=== PATIENT | male | born 1945 | race Caucasian/White ===

== ENCOUNTER 2024-01-25 07:43 | Outpatient (RCR) | payer OTHER, SELFPAY | END 2024-01-25 23:59 | disposition home or self-care (01) | LOC: RPT 07:43 | PROVIDERS: ATTENDING PHYSICIAN Nurse Practitioner Adult Health | DX: R26.81 Unsteadiness on feet (principal); Z73.6 Limitation of activities due to disability; R26.2 Difficulty in walking, not elsewhere classified; R29.6 Repeated falls | CPT/HCPCS: 97162 ==

== ENCOUNTER 2024-02-22 07:52 | Outpatient (RCR) | payer OTHER, SELFPAY | END 2024-02-22 23:59 | disposition home or self-care (01) | LOC: RPT 07:52 | PROVIDERS: ATTENDING PHYSICIAN Nurse Practitioner Adult Health | DX: R26.81 Unsteadiness on feet (principal); Z73.6 Limitation of activities due to disability; R26.2 Difficulty in walking, not elsewhere classified | CPT/HCPCS: 97110; 97112; 97116; 97530 ==

== ENCOUNTER 2024-03-11 09:34 | Day surgery (SDC) | payer OTHER, SELFPAY ==
--- NOTE | 2024-03-11 11:25 | ITS.CL.CARDI ---
Research Lab Assistant - Cardioversion
Cardioversion
Procedure Report:
Date of Procedure:
Procedure: Cardioversion
Indication: Symptomatic atrial fibrillation
Performing Physician: Ford Scott MD
Technique: The patient was brought to the holding area. Signed informed consent was obtained. A time out was called and performed. The patient was anesthetized by the anesthesia service. Anticoagulation status was reviewed and appropriate. R2 pads
were placed anteriorly and posteriorly. A 200 J synchronized biphasic shock restored atrial paced rhythm without significant bradycardia. There were no complications.
Conclusion: Uncomplicated cardioversion from atrial fibrillation to atrial paced rhythm.
Recommendation: Routine post cardioversion care. Continue toolroom helper anticoagulation.
== END 2024-03-11 11:40 | disposition home or self-care (01) ==
LOC: CATH 09:34
PROVIDERS: ATTENDING PHYSICIAN Internal Medicine Cardiovascular Disease; FAMILY PHYSICIAN Family Medicine; OTHER PHYSICIAN Internal Medicine Cardiovascular Disease
DX: I48.0 Paroxysmal atrial fibrillation (principal); I48.92 Unspecified atrial flutter; I25.5 Ischemic cardiomyopathy; Z95.810 Presence of automatic (implantable) cardiac defibrillator; I11.0 Hypertensive heart disease with heart failure; I50.23 Acute on chronic systolic (congestive) heart failure; E11.9 Type 2 diabetes mellitus without complications; E78.5 Hyperlipidemia, unspecified; Z85.51 Personal history of malignant neoplasm of bladder; Z79.01 Long term (current) use of anticoagulants; Z79.84 Long term (current) use of oral hypoglycemic drugs
CPT/HCPCS: 92960; 93005

== ENCOUNTER 2024-03-30 06:44 | Outpatient (RCR) | payer OTHER, SELFPAY | END 2024-03-30 23:59 | disposition home or self-care (01) | LOC: RPT 06:44 | PROVIDERS: ATTENDING PHYSICIAN Nurse Practitioner Adult Health | DX: R26.81 Unsteadiness on feet (principal); Z73.6 Limitation of activities due to disability | CPT/HCPCS: 97110; 97112 ==

== ENCOUNTER 2024-04-07 11:39 | Day surgery (SDC) | payer OTHER, SELFPAY ==
[2024-04-07 09:58] LABS: Glucose - Point of Care 181 mg/dl (70-99)
[2024-04-07 10:27] LABS: INR 3.77; PT 37.8 Sec (11.4-14.6)
--- NOTE | 2024-04-07 10:38 | ITS.CL.CARDI ---
Optical Lathe Operator - Cardioversion
Cardioversion
Procedure Report:
Date of Procedure:
Procedure: Cardioversion
Indication: Symptomatic atrial fibrillation
Performing Physician: Ford Scott MD
Technique: The patient was brought to the holding area. Signed informed consent was obtained. A time out was called and performed. The patient was anesthetized by the anesthesia service. Anticoagulation status was reviewed and appropriate. R2 pads
were placed anteriorly and posteriorly. A 200 J synchronized biphasic shock restored normal sinus rhythm without significant bradycardia. There were no complications.
Conclusion: Uncomplicated cardioversion from atrial fibrillation to sinus rhythm.
Recommendation: Routine post cardioversion care. Continue fci anticoagulation.
== END 2024-04-07 11:51 | disposition home or self-care (01) ==
LOC: CATH 11:39
PROVIDERS: ATTENDING PHYSICIAN Internal Medicine Cardiovascular Disease; FAMILY PHYSICIAN Family Medicine; OTHER PHYSICIAN Internal Medicine Cardiovascular Disease
DX: I48.0 Paroxysmal atrial fibrillation (principal); I11.0 Hypertensive heart disease with heart failure; I50.23 Acute on chronic systolic (congestive) heart failure; E78.5 Hyperlipidemia, unspecified; I25.5 Ischemic cardiomyopathy; E11.9 Type 2 diabetes mellitus without complications; Z95.810 Presence of automatic (implantable) cardiac defibrillator; Z85.51 Personal history of malignant neoplasm of bladder; Z79.84 Long term (current) use of oral hypoglycemic drugs; Z79.01 Long term (current) use of anticoagulants
CPT/HCPCS: 82962; 85610; 92960; 93005

== ENCOUNTER 2024-04-25 07:23 | Outpatient (RCR) | payer OTHER, SELFPAY | END 2024-04-25 23:59 | disposition home or self-care (01) | LOC: RPT 07:23 | PROVIDERS: ATTENDING PHYSICIAN Nurse Practitioner Adult Health | DX: R26.81 Unsteadiness on feet (principal); Z73.6 Limitation of activities due to disability | CPT/HCPCS: 97110; 97112 ==

== ENCOUNTER 2024-05-30 07:54 | Outpatient (RCR) | payer OTHER, SELFPAY | END 2024-05-30 23:59 | disposition home or self-care (01) | LOC: RPT 07:54 | PROVIDERS: ATTENDING PHYSICIAN Nurse Practitioner Adult Health | DX: R26.81 Unsteadiness on feet (principal); Z73.6 Limitation of activities due to disability | CPT/HCPCS: 97110; 97112; 97530 ==

== ENCOUNTER 2024-06-13 07:51 | Outpatient (RCR) | payer OTHER, SELFPAY | END 2024-06-13 23:59 | disposition home or self-care (01) | LOC: RPT 07:51 | PROVIDERS: ATTENDING PHYSICIAN Nurse Practitioner Adult Health | DX: R26.81 Unsteadiness on feet (principal); Z73.6 Limitation of activities due to disability | CPT/HCPCS: 97110; 97112 ==

== ENCOUNTER 2024-07-06 07:35 | Inpatient (IN) | payer OTHER, SELFPAY ==
[2024-07-06] VITALS (43 sets, daily range): BP systolic 73–125; BP diastolic 51–93; BMI 17.5
[2024-07-06 04:28] LABS: % Basophils 0.8 % (0-2); % Eosinophils 1.8 % (0-6); % Immature Granulocytes 1.1 % (0-0.5); % Lymphocytes 14.4 % (20.5-51.1); % Monocytes 7.2 % (1.7-9.3); % Neutrophils 74.7 % (42.2-75.2); Absolute Basophils 0.1 10^3/uL (0-0.2); Absolute Eosinophils 0.1 10^3/uL (0-0.7); Absolute Immature Granulocytes 0.1 10^3/uL (0-0.05); Absolute Lymphocytes 0.9 10^3/uL (1.2-3.4); Absolute Monocytes 0.5 10^3/uL (0.1-0.6); Absolute Neutrophils 4.7 10^3/uL (1.4-6.5); Hematocrit 43.2 % (39.0-52.0); Hemoglobin 14.6 g/dL (13.0-18.0); Mean Corp Hgb Conc. 33.8 g/dL (33.0-37.0); Mean Corpuscular Hgb 32.7 pg (27.0-31.0); Mean Corpuscular Volume 96.6 fL (80.0-94.0); Mean Platelet Volume 12.5 fL (7.4-10.4); Nucleated Red Blood Cells % 0 % (-); Platelet Count 165 10^3/uL (130-400); Red Blood Cell Count 4.47 10^6/uL (4.70-6.10); Red Cell Dist. Width 15.3 % (11.5-14.5); White Blood Cell Count 6.2 10^3/uL (4.8-10.8)
--- NOTE | 2024-07-06 04:32 | ED.GENMED ---
History of Present Illness
General
Chief Complaint: Abnormal Lab Value
Source: patient and family
Exam Limitations: none
Time Seen by Provider: 07/06/24 04:29
Nursing documentation reviewed up to this point in time: agreed with
History of Present Illness
History of Present Illness:
78-year-old male presents with 2 days of confusion and 'walking into [facility] . Patient states that he gets this way when his potassium is elevated. Patient states that he is feeling jittery. Patient denies chest pain or shortness of breath. He
states that he has been having the symptoms for the last 2 days. He did not come to the hospital sooner because his is on hospice and he has been dealing with that.
Past History
Past History
ED Past Medical History: Arrthythmia (Atrial fibrillation/atrial flutter status post ablation), Cancer (bladder), CHF (Cardiomyopathy), Hypercholesterolemia, NIDDM and Other (Cardiomyopathy patient has an AICD)
ED Past Surgical History: Bowel resection (Sigmoid colon resection January 10, 2021), Cardiac (AICD, radiofrequency ablation) and Urological (Bladder, prostate)
Social History
Tobacco: Non-smoker
Alcohol: Occasional
Drug: None
Personal:
Living: with family
Employment: Retired
Family History
Family History: Hypertension
Review of Systems
Review of Systems
Allergies reviewed?: Yes
Other source history: family
All Other Systems: ROS reviewed and negative except as documented in HPI and ROS
Constitutional: Reports no symptoms
EENT: Reports no symptoms
Respiratory: Reports no symptoms
Cardiac: Reports no symptoms
ABD/GI: Reports no symptoms
: Reports no symptoms
Musculoskeletal: Reports no symptoms
Skin: Reports no symptoms
Neurological: Reports dizzy, headache and weakness
Endocrine: Reports no symptoms
Hematologic/Lymphatic: Reports no symptoms
Psychiatric: Reports anxiety
Phy Exam
General Physical Exam
General Presentation: well appearing and no apparent distress
General Skin: warm and dry
General Habitus: normal
General Mental: alert
General Hydration: appears well hydrated
ENT Exam
ENT Exam: EOMI, pharynx normal, neck supple and normocephalic
Eye Exam
Eye Exam: PERRL, cornea clear and conjunctiva normal
Cardiovascular Exam
Cardiovascular Exam: irregularly irregular, sternotomy scar and tachycardia
Pulmonary Exam
Pulmonary Exam: lungs clear, no respiratory distress, no rales, no crackles, no rhonchi, no stridor, no wheezing and no cough
Gastrointestinal Exam
Gastrointestinal Exam: normal bowel sounds, non tender, soft, no organomegaly, no pulsatile mass and non distended
Neurological Exam
Neurological Exam: alert, oriented x3, no motor deficits and speech normal
Musculoskeletal Exam
Musculoskeletal Exam: full ROM and no edema
Skin Exam
Skin Exam: normal color, warm/dry, no rash and no petechia
Psychiatric Exam
Psychiatric Exam: normal mood/affect
Course
Orders/Labs/Results
Orders:
Orders
07/06/24 04:16
Electrocardiogram (*1) Urgent
Reason for Study: Chest Pain
Cardiac Monitoring- Treatment ONCE
EKG- Treatment ONCE
IV Insert/Care/Rem.- Treatment PRN
07/06/24 04:20
CMP [Comprehensive Metabolic Panel] Urgent
Complete Blood Count/With Diff Urgent
07/06/24 04:29
Cardiac Monitoring- Treatment ONCE
Albuterol Sulfate [Ventolin Nebules] 10 mg INH R NOW STA
Bumetanide [Bumex] 1 mg IV NOW STA
Calcium Gluconate 1,000 mg IV NOW STA
Dextrose 50%-Water [Dextrose 50% Syringe] 12.5 grams IV [id number] PRN
Dextrose 50%-Water [Dextrose 50% Syringe] 25 grams IV NOW STA
Insulin Human Regular [Novolin R] 10 units IV NOW STA
Sodium Bicarbonate 50 meq IV NOW STA
Sodium Zirconium Cyclosilicate [Lokelma] 10 gram PO NOW STA
07/06/24 04:30
Bedside Glucose- Treatment DIRECTED
Bedside Glucose- Treatment ONCE
Troponin I Urgent
0.9% Sodium Chloride 1000 ml [Nss] 1,000 ml IV 80 mls/hr
07/06/24 05:07
Electrocardiogram (*1) Urgent
Reason for Study: Palpitations
EKG- Treatment ONCE
07/06/24 05:[address] Non Medication Order As Directed
Physician Order: interrogate device
Above order entered?: Yes
07/06/24 05:30
Dextrose 5%/Water 1000 ml [D5w] 1,000 ml Sodium Bicarbonate 150 meq IV 100 mls/hr
07/06/24 Breakfast
1800 calorie (15 carb) Diabetic
At Your Request: Full Participation
Diabetic Diet: Potassium, 2 Gram
Oral Supplement (If unsure of flavor order apple or vanilla): Ensure Enlive Chocolate
Supplement Frequency: BID
07/06/24 06:03
Potassium Urgent
Comment: draw 2 hours after regular insulin IV administration
07/06/24 06:06
EKG [Electrocardiogram (*1)] Urgent
Reason for Study: Abnormal EKG
Comment: change in EKG
07/06/24 06:07
EKG- Treatment ONCE
07/06/24 06:43
Admit/Transfer Patient As Directed
Co-Sign Provider:
Level of Care: Inpatient admission
Assign to:: IMU- Intermediate Care
Physician / Group: Hospitalist
Diagnosis: Hyperkalemia with slow VT
Reason for Hospitalization: hyperkalemia, w/ slow VT
Expected length of stay greater than two midnights?: Yes
ELOS- Estimated Length of Stay in days: 2
I certify the patient meets the requirements for IP care: Yes
07/06/24 06:44
PRN Pain Medication Management As Directed
May give lesser potent ordered pain med per pt: Yes
preference::
Protocol:: Medication orders for pain may be administered in a
manner that supports deferring to patient preference
when the pt is:
- Requesting an ordered lesser potent pain medication.
Least to most potent pain medications are defined
as: acetaminophen < NSAID < tramadol < opioids
(morphine, oxycodone, hydromorphone).
- Requesting a lesser dose of the same medication IF
ORDERED.
- Requesting a less intrusive route of administration
if both routes are prescribed by the provider (PO <
IV).
07/06/24 06:45
Code Status As Directed
Resuscitation Status: Do not resuscitate
Reached after discussion with pt or family/Healthcare POA: Yes
07/06/24 06:46
DNR Bracelet Application ONCE
07/06/24 07:00
Flush (0.9% Sodium Chloride) [Flush (Nss)] See Dose Instructions IV PER PROTOCOL
07/06/24 07:06
Ondansetron Injectable [Zofran] 4 mg IV Q6HPRN PRN
07/06/24 07:12
Metoclopramide [Reglan] 10 mg IV NOW STA
07/06/24 08:00
Amiodarone [Pacerone] 300 mg PO DAILY
Ferrous Sulfate [Feosol] 325 mg PO DAILY
Metoprolol Xl [Toprol Xl] 25 mg PO BID
Pantoprazole [Protonix] 20 mg PO DAILY
Sertraline HCl [Zoloft] 25 mg PO DAILY
Sodium Bicarbonate 1,950 mg PO BID
07/06/24 08:32
Acetaminophen [Tylenol] 650 mg PO Q4HPRN PRN
Bisacodyl [Dulcolax] 10 mg RECTAL [id number] PRN
Polyethylene Glycol Powder [Miralax] 17 grams PO DAILYPRN PRN
07/06/24 08:32
CARDIOLOGY CONSULT Routine
Consulting Provider: David Hernandez
Was physician already notified: No
Reason for consult: slow VT, K 5.9
Consult Notification Routine
Specialty to Notify: Cardiology
Date consulting provider notified: 07/06/24
Time consulting provider notified: 08:42
Notified:: Service
NEPHROLOGY CONSULT Routine
Consulting Provider: Coleen Bravo
Was physician already notified: Yes
VTE Contraindication Routine
VTE Mechanical Device Contraindication: Medical Contraindication
Pharmocologic Contraindication: Medical Contraindication
Activity As Directed
Activity Level: With Assistance
Bedside Glucose Monitoring As Directed
Frequency: AC&HS
Vital Signs As Directed
Frequency: Per unit guidelines
Pulse Ox/spot Check [RESP] Routine
Quantity: 1
07/06/24 09:00
Insulin Aspart Corrective Low [Novolog Flexpen-Low Resistance] See Protocol SC AC
07/06/24 11:38
BMP [Basic Metabolic Panel] Q6H
07/06/24 11:55
Prochlorperazine [Compazine] 5 mg IV Q6HPRN PRN
07/06/24 14:00
Dextrose 5%/Water 1000 ml [D5w] 1,000 ml Sodium Bicarbonate 150 meq IV 75 mls/hr
07/06/24 16:01
BMP [Basic Metabolic Panel] Q6H
07/06/24 18:00
Atorvastatin [Lipitor] 40 mg PO QPM
Warfarin [Coumadin] 5 mg PO Q48H
07/07/24 03:51
Basic Metabolic Panel IN AM
Complete Blood Count/No Diff IN AM
Magnesium IN AM
Prothrombin Time IN AM
07/07/24 18:00
Warfarin [Coumadin] 7.5 mg PO Q48H
Abnormal Lab Results
07/06/24 07/06/24 07/06/24
04:20 04:30 04:36
RBC 4.47 L 10^6/uL
(4.70-6.10)
MCV 96.6 H fL
(80.0-94.0)
MCH 32.7 H pg
(27.0-31.0)
RDW 15.3 H %
(11.5-14.5)
MPV 12.5 H fL
(7.4-10.4)
Abs Immat Gran (auto) 0.1 H 10^3/uL
(0-0.05)
Absolute Lymphs (auto) 0.9 L 10^3/uL
(1.2-3.4)
Immature Gran % 1.1 H %
(0-0.5)
Lymphocytes % 14.4 L %
(20.5-51.1)
Sodium 134 L mmol/L
(135-145)
Potassium 5.9 H mmol/L
(3.5-5.1)
Carbon Dioxide 14 L* mmol/L
(22-30)
BUN 82 H mg/dl
(9-20)
Glucose 249 H mg/dl
(70-99)
Calcium 10.4 H mg/dl
(8.4-10.2)
AST 95 H U/L
(17-59)
ALT 91 H U/L
(0-50)
Troponin I 0.051 H* ng/ml
POC Glucose 201 H mg/dl
(70-99)
07/06/24
05:39
RBC
MCV
MCH
RDW
MPV
Abs Immat Gran (auto)
Absolute Lymphs (auto)
Immature Gran %
Lymphocytes %
Sodium
Potassium
Carbon Dioxide
BUN
Glucose
Calcium
AST
ALT
Troponin I
POC Glucose 259 H mg/dl
(70-99)
07/06/24 04:20
07/06/24 06:03
Vital Signs
Initial and Last Documented VS:
Initial Vital Signs
Temp Pulse Resp BP Pulse Ox
98.8 F 107 19 99/82 100
07/06/24 04:00 07/06/24 04:00 07/06/24 04:00 07/06/24 04:00 07/06/24 04:00
Last Documented Vital Signs
Temp Pulse Resp BP Pulse Ox
97.6 F 72 20 104/73 98
07/07/24 19:28 07/07/24 19:30 07/07/24 19:28 07/07/24 19:30 07/07/24 19:30
MDM/Problems Addressed
Differential Diagnosis Includes:
Hyperkalemia, dehydration, acidosis, acute coronary syndrome
MDM/Problems Addressed:
78-year-old male presents with 2 days of 'bumping into [facility] '. He states that he is putting his in hospice has been preoccupied with her health to care for himself.
Chronic conditions affecting care:
Hypokalemia, ACS, CHF, dizziness and lightheadedness
*Critical Care Note
Total Time (30-74mins, 75-104mins- exclusive of procedures): 50
comment:
Critical care statement: A total of 50 minutes of critical care time was provided for this patient. This time is separate from time utilized to perform the aforementioned documented procedures. Aggregate critical care time includes only time
during which I was engaged in work directly related to the patient's care, as described above, whether at the bedside or elsewhere in the Emergency Department.
Update Note
Update Note:
Spoke with Dr. Villeda, nephrology who agreed with plan for treatment of hyperkalemia, dehydration, and acidosis. Patient has a urostomy bag which is producing urine. He states that he has been given off 1500 to 2000 mg liters of urine per day.
Spoke with Dr. Hernandez, cardiology to review EKGs. From chart review patient has slow VT. We will interrogate his [place] device. EKG does not appear to be an acute [place]. No Chemical Mixer activation per Dr. Hernandez.
EKG shows sinus tachycardia, wide-complex tachycardia, right bundle branch block, rate of 107 with corrected QT of 662 which I suspect is erroneous.
ED Attending Note
-
Portions of this chart may have been created with voice recognition software.� Occasional wrong word or��sound alike� substitutions may have occurred due to the inherent limitations of voice recognition software.
Discharge Plan
Departure
Patient Disposition: Admit
Date of Disposition: 07/06/24
Time of Disposition: 05:40
Admit to: ICU
Presentation/result/management discussed w/ accepting MD/DO: Hospitalist
Discharge Problem:
Acute hyperkalemia, Acute dehydration, Acidosis, Renal failure
Interventions
Interventions:
*Risk Screen - Suicide Last Done: 07/06/24 04:03
*General Assessment Last Done: 07/06/24 04:03
*Neglect/Abuse Screening Last Done: 07/06/24 04:03
ED- Fall Risk Assessment Last Done: 07/06/24 04:08
*ED COVID-19 Vaccine History Last Done: 07/06/24 04:03
*Nursing Disposition Last Done: 07/06/24 09:59
Discharge Date and Time
Discharge Date/Time: 07/06/24 10:00
[2024-07-06 04:38] LABS: Glucose - Point of Care 201 mg/dl (70-99)
[2024-07-06] MEDS: SODIUM BICARBONATE 50 MEQ IV (04:38)
[2024-07-06] MEDS: VENTOLIN NEBULES 10 MG INH (04:40)
[2024-07-06] MEDS: NSS 1000 IV (04:43)
[2024-07-06] MEDS: CALCIUM GLUCONATE 1000 MG IV (04:44)
[2024-07-06] MEDS: BUMEX 1 MG IV (04:45)
[2024-07-06] MEDS: DEXTROSE 50% SYRINGE 25 GRAMS IV (04:55)
[2024-07-06] MEDS: NOVOLIN R 10 UNITS IV (04:56)
[2024-07-06 04:59] LABS: ALT (SGPT) 91 U/L (0-50); AST (SGOT) 95 U/L (17-59); Albumin 4.3 g/dl (3.5-5.0); Alkaline Phosphatase 116 U/L (38-126); Blood Urea Nitrogen 82 mg/dl (9-20); Calcium 10.4 mg/dl (8.4-10.2); Carbon Dioxide 14 mmol/L (22-30); Chloride 105 mmol/L (98-107); Glucose 249 mg/dl (70-99); Potassium 5.9 mmol/L (3.5-5.1); Sodium 134 mmol/L (135-145); Total Bilirubin 0.7 mg/dl (0.2-1.3); Total Protein 6.8 g/dl (6.3-8.2); eGFR 56.93
[2024-07-06 05:02] LABS: Troponin I 0.051 ng/ml
[2024-07-06] MEDS: LOKELMA 10 GRAM PO ×2 (05:12→11:08)
[2024-07-06 05:41] LABS: Glucose - Point of Care 259 mg/dl (70-99)
[2024-07-06] MEDS: SODIUM BICARBONATE 1150 MEQ IV ×3 (05:47→20:56)
--- NOTE | 2024-07-06 06:16 | HPS.HSE ---
Family Physician
-
Family Physician: Hillary Swenson
Chief Complaint
-
Patient with complaint of dizziness and confusion which is consistent with his prior presentation of hypokalemia.
History of Present Illness
Patient is a 78-year-old male with a past medical history of V. tach status post ablation on the AICD placement,. History of atrial fibrillation on anticoagulation and status post pacemaker. History of ischemic cardiomyopathy. CKD. He has a
history of a radical cystectomy with ileal conduit.
Apparently had a typical presentation of his hyperkalemia today. Reports that when he becomes hyperkalemic a becomes unbalanced walks into the [place] has dizziness and weakness. Spot daughter also reports that with his symptoms of hyperkalemia
patient typically had some slurring of speech which he again had today. There is no particular triggering factors for these episodes of hyperkalemia. Patient reports that he has been off of diuretic breaks due to low weights and no edema for few
months now. He has continued to take his bicarbonate supplementation. He is on very low-dose lisinopril and does not take Lokelma anymore. He denies dietary indiscretion (less likely etiology). Obesity denies the patient denies chest pain
palpitations or shortness of breath. He currently reports a mild nausea.
On arrival in the emergency department the patient was tachycardic to the 110s and ECG showed slow V. tach. He was normotensive and oxygen saturation was 99% on room air. He was afebrile. His troponin was 0.05. CBC was unremarkable. Chemistries
were notable for a BUN of 83 creatinine of 1.3 and a bicarb of 14 with a potassium of 5.9. His glucose was 249.
Patient was immediately started on hyperkalemia protocol with calcium gluconate bicarb and insulin plus dextrose and lokelma. Repeat ECG after the insulin dextrose showed atrial fibrillation.
Medical History
Past Medical History
Past Medical History: Reports CAD and NIDDM
Additional Past Medical History:
VT s/p ablation and AICD
AFIB
Recurrent hyperkalemia
CHF
Past Surgical History: Reports Bowel Resection (sigmoidectomy) and Urological (Radical cystectomy with ileal conduit)
Social History
Tobacco: Non-smoker
Alcohol: None
Drug: None
Personal:
Living: With Family
Employment: Retired
Family History
Family History: Not pertinent
Allergies / Home Medications
Allergies reflects when Allergies were last updated in [employer].
Home Medications with original date entered in [employer]
Allergy/Medication List:
Allergies
Allergy/AdvReac Type Severity Reaction Status Date / Time
adhesive Allergy Rash Verified 07/06/24 04:11
doxycycline Allergy Nausea/Poor Verified 07/06/24 04:11
appetite
levofloxacin [From Levaquin] Allergy Nausea / Verified 07/06/24 04:11
Vomiting
Home Medications
metoprolol succinate 25 mg tablet,extended release 24 hr 25 mg PO BID Blood pressure 12/18/14
atorvastatin 40 mg tablet 40 mg PO QPM High cholesterol 11/10/16
warfarin 5 mg tablet (Jantoven) 5 mg PO Q48H Blood clot prevention/tx 01/19/21
amiodarone 200 mg tablet (Pacerone) 300 mg PO DAILY Arrhythmia 09/10/21
ferrous sulfate 325 mg (65 mg iron) tablet (iron) 325 mg PO DAILY Supplement 09/10/21
lisinopril 2.5 mg tablet 2.5 mg PO DAILY Blood Pressure 02/06/22
sodium bicarbonate 650 mg tablet 1,950 mg PO BID Supplement 02/10/22
metformin 500 mg tablet,extended release 24 hr 500 mg PO QPM@1700 Diabetes 10/30/23
pantoprazole 20 mg tablet,delayed release (Protonix) 20 mg PO DAILY Gastrointestinal Issue 10/30/23
sertraline 50 mg tablet 25 mg PO DAILY Depression 10/30/23
dapagliflozin propanediol 10 mg tablet (Farxiga) 10 mg PO DAILY Heart Failure #30 tabs 11/01/23
Review of Systems
-
Constitutional: Reports No Symptoms
EENT: Reports No Symptoms
Respiratory: Reports No Symptoms
Cardiac: Reports No Symptoms
Abdomen/GI: Reports No Symptoms
: Reports No Symptoms
Musculoskeletal: Reports No Symptoms
Skin: Reports No Symptoms
Neurological: Reports Dizzy and Weakness
Endocrine: Reports No Symptoms
Hematologic/Lymphatic: Reports No Symptoms
Psych: Reports No Symptoms
Physical Exam
Vital Signs
Vital Signs
Temp Pulse Resp BP Pulse Ox
98.8 F 76 18 113/84 99
07/06/24 04:00 07/06/24 06:00 07/06/24 06:00 07/06/24 05:00 07/06/24 05:45
Physical Exam
General: No Apparent Distress, Comfortable, Conversant and Appears Chronically Ill
HEENT: NormoCephalic, Anicteric and Moist mucous membranes
Respiratory: Clear
Cardiac: S1/S2 and Irregular Rhythm
Breast: Deferred by me
GI: Soft, Non Tender, Non Distended, Normal Bowel Sounds and Ostomy
Rectal: Deferred by Provider
Musculoskeletal: No Clubbing, No Cyanosis and No Edema
Skin: Warm
Neuro: AO x 3
Hematologic/Lymphatic: No Lymphadenopathy
Psych: Calm
Laboratory Results
-
07/06/24 04:20
Laboratory Results
Total Bilirubin 0.7 mg/dl (0.2-1.3) 07/06/24 04:20
AST 95 U/L (17-59) H 07/06/24 04:20
ALT 91 U/L (0-50) H 07/06/24 04:20
Alkaline Phosphatase 116 U/L (38-126) 07/06/24 04:20
Troponin I 0.051 ng/ml H* 07/06/24 04:30
Data Reviewed
-
Medical Tests (Nuc Med, Echo, EKG etc): Image Personally Visualized and interpreted
Lab Data: Labs Reviewed by me
Impression/Plan
-
IMPRESSION:
PLAN:
1. Hyperkalemia - Patient presents with hyperkalemia of 5.9 and ECG changes (slow VT of 110 - 120). Recurrent episode. No known clear trigger. S/P temporizing measures in ED with correction of slow VT to rate controlled Afib. Trop 0.05 which is
similar to prior. Cardiology aware and agree with plan.
- admit to IMU
- lokelma 10 daily for now
- no diuretics, iv fluids as below
- hold lisinopril
- low k diet
- repeat K in 2 hours then q 6 hours, additional temporization if K > 5.5 and recurrence of slow VT
- consult nephrology
- acidosis likely contributing and will correct as below
2. Acidosis - Hyperchloremic acidosis. Risk factors include type IV RTA and possibly the ureteral ileal conduit with absorption of excreted acids. Bicarb deficit = 240 meq.
- s/p 1 amp of bicarb in ED
- continue with bicarb gtt 150 meq at 50ml/hr
- nephrology consult as above
- continue oral supplementation of 650mg sodium bicarb tid
3. Slow VT - patient with h/o VT s/p ablation who presented in slow VT secondary to hyperkalemia. Improved with initial temporization
- telemetry
- cardiology consultation
- continue amio
4. DM II
- holding metformin
- sliding scale insulin
- hold farxiga for now
5 AFIB -
- amio
- metoprolol succinate 35 bid
- continue warfarin 5/7.5
DVT PPX - on warfarin
Code Status - DNR
[2024-07-06 06:49] LABS: Potassium 5.1 mmol/L (3.5-5.1)
[2024-07-06] MEDS: REGLAN 10 MG IV (07:16)
--- NOTE | 2024-07-06 07:26 | CON.CAR ---
Addendum entered and electronically signed by Frank Pascal MD 07/06/24 10:19:
I saw and examined the patient.
The LAND SURVEYOR ASSISTANT or PA's note was reviewed and I agree with the note.
Comment: General: Appears cachectic
Neck: Supple, no JVD, HJR, carotids +2 B/L, no bruits bilaterally.
Heart: Non displaced PMI, RRR, no murmurs, No S3, S4, no rubs.
Lungs: Scattered rhonchi
Extremities: No clubbing, cyanosis or edema bilaterally.
Neuro: Grossly nonfocal, awake, alert and oriented x3.
Chan has a history of chronic systolic CHF, nonischemic cardiomyopathy with ejection fraction of 34%, PAF status post multiple PVI's, convergent, cardioversion April 2024, VT status post ablation 2014, [place] ICD, hypertension, diabetes.
Amiodarone was decreased to 300 mg daily in June 2024. He is felt jittery and weak and stumbling for the past 1 to 2 weeks. He also had issues with retching with brownish material reported by daughters. He has had poor appetite and weight is
decreased and has held his Lasix. He came to the ER and found to be in rapid A-fib with hyperkalemia.
Discussed with patient and daughters at bedside. He seems to have multifactorial decline and appears cachectic with weight loss. He is in A-fib for the past 24 hours but doubtful this is a significant contributing factor to his symptoms. He also
has had retching with possible coffee-ground emesis
Recommend workup of GI issues and correction of hyperkalemia. He remains in A-fib which is rapid at present. Will restart his oral medications and reassess heart rate. We could consider cardioversion prior to discharge but will be at high risk of
recurrent A-fib. Will also increase amiodarone to 200 mg p.o. twice daily. Device check reveals only A-fib and no V. tach
Original Note:
Consultation
Consultation Request
Date/Time Consultation Requested: 07/06/24
Date/Time Consultation Performed: 07/06/24
Requesting Provider: Dr. Paniagua
Performing Provider:
Reason for Consultation: Sustained VT, paroixysmal Afib
Medical History
-
History of Present Illness:
Patient came to [facility] early this morning with stumbling and is being admitted with abnormal telemetry and hyperkalemia. Patient with a h/o slow VT and had ATP for sustained VT on 07/10/24. No other device alerts since then, but patient has a h/o VT
rates below detection zone. Patient also with h/o paroxysmal Afib. He had an outpatient CV for Afib 03/11/24 and recurred with Afib within 3 weeks. His amiodarone dose was increased to 200 mg BID approx 03/26/24 and he had another CV 04/07/24. He was
seen in the office 06/13/24 and was in SR on device check so his amiodarone dose was decreased to 300 mg daily. Patient reports feeling jittery and weak leading to him stumbling starting on Thursday, but his daughters are sitting bedside and state he
has been acting that way for 2 weeks. Patient finally came to [facility] this AM because he is retching to vomit as well and patient was suspicious that his potassium level was high, he has a h/o hyperkalemia. He reports that because his weight has been
low that he has not been taking his usual doses of Lasix 40 mg daily. He does not take a potassium supplement. He takes lisinopril 2.5 mg daily chronically. He denies palpitations. No chest pain. His potassium was corrected in the ER and is now
normal.
PMH:
Chronic HFrEF
Paroxysmal atrial fibrillation
s/p PVI 06/2010, 11/2010, 09/2013
s/p flutter ablation 05/2012
s/p convergent MAZE 09/2014
s/p CV 03/11/24, recurred and amiodarone increased to 200 mg BID 03/26/24
s/p CV 04/07/24
Chronic amiodarone therapy
Chronic warfarin anticoagulation
Ventricular tachycardia
s/p VT ablation 12/2014
s/p sustained VT treated with ATP 04/09/24
s/p [place] DC ICD
HTN
DM2
Past Medical History
Past Medical History: Other (In HPI.)
Past Surgical History: Bowel Resection (s/p radical cysto-prostate with ileal conduit, Open sigmoidectomy for diverticulitis at [place] 01/10/21) and Cardiac (Convergent MAZE 09/2014)
Social History
Tobacco: Non-Smoker
Alcohol: None
Drug: None
Personal:
Living: With Family
Employment: Retired
Family History
Family History: Reviewed & Not Pertinent
Allergies / Home Medications
Allergy/AdvReac Type Severity Reaction Status Date / Time
adhesive Allergy Rash Verified 07/06/24 04:11
doxycycline Allergy Nausea/Poor Verified 07/06/24 04:11
appetite
levofloxacin [From Levaquin] Allergy Nausea / Verified 07/06/24 04:11
Vomiting
�Medication �Instructions �Recorded �Confirmed �Type
metoprolol succinate 25 mg 25 mg PO BID Blood pressure 12/18/14 07/06/24 History
tablet,extended release 24 hr
atorvastatin 40 mg tablet 40 mg PO QPM High cholesterol 11/10/16 07/06/24 History
warfarin 5 mg tablet (Jantoven) 5 mg PO Q48H Blood clot 01/19/21 07/06/24 History
prevention/tx
amiodarone 200 mg tablet (Pacerone) 300 mg PO DAILY Arrhythmia 09/10/21 07/06/24 History
ferrous sulfate 325 mg (65 mg 325 mg PO DAILY Supplement 09/10/21 07/06/24 History
iron) tablet (iron)
lisinopril 2.5 mg tablet 2.5 mg PO DAILY Blood Pressure 02/06/22 07/06/24 History
sodium bicarbonate 650 mg tablet 1,950 mg PO BID Supplement 02/10/22 07/06/24 History
metformin 500 mg tablet,extended 500 mg PO QPM@1700 Diabetes 10/30/23 07/06/24 History
release 24 hr
pantoprazole 20 mg tablet,delayed 20 mg PO DAILY Gastrointestinal 10/30/23 07/06/24 History
release (Protonix) Issue
sertraline 50 mg tablet 25 mg PO DAILY Depression 10/30/23 07/06/24 History
dapagliflozin propanediol 10 mg 10 mg PO DAILY Heart Failure #30 11/01/23 07/06/24 Rx
tablet (Farxiga) tabs
Review of Systems
-
History Source: Patient and Family (daughters sitting bedside)
All other systems: Negative unless noted
Physical Exam
Vital Signs
Temp Pulse Resp BP Pulse Ox
98.8 F 113 19 120/69 98
07/06/24 04:00 07/06/24 07:00 07/06/24 06:50 07/06/24 06:00 07/06/24 06:50
GEN: No distress, awake, alert and oriented x3
SKIN: Warm, dry and pink. No rash
HEENT: EOMI, MMM
LUNGS: CTA B/L without wheeze or rales
CV: Tachy, S1/S2, no murmur
ABD: Retching to vomit. soft, BS+, NT, ND
EXT: No clubbing, cyanosis, lesions or edema B/L
NEURO: No focal or lateralizing weakness
Lab Results
07/06/24 04:20
07/06/24 06:03
Troponin I 0.051 ng/ml H* 07/06/24 04:30
Impression / Plan
-
PCP: Dr. Swenson
Test [facility] Winder: Dr. Yeager
Impression:
Afib with RVR
Hyperkalemia
Nausea and vomiting
Elevated Troponin
Chronic HFrEF
Paroxysmal atrial fibrillation
s/p PVI 06/2010, 11/2010, 09/2013
s/p flutter ablation 05/2012
s/p convergent MAZE 09/2014
s/p CV 03/11/24, recurred and amiodarone increased to 200 mg BID 03/26/24
s/p CV 04/07/24
Chronic amiodarone therapy
Chronic warfarin anticoagulation
Ventricular tachycardia
s/p VT ablation 12/2014
s/p sustained VT treated with ATP 04/09/24
s/p [place] DC ICD
HTN
DM2
Echo 07/18/2020: EF 30 to 35%, global hypokinesis as well as inferior akinesis, stage III diastolic dysfunction, moderate MR, mild AR, mild TR, estimated PAP 40 mmHg
Echo 10/30/2023: EF 34% by volume and 20-25% visually, global hypokinesis, normal RV function, mod MR, mod TR with PAP 40-45 mmHg
Plan:
-Patient came to [facility] early this morning with stumbling and is being admitted with abnormal telemetry and hyperkalemia. Patient with a h/o slow VT and had ATP for sustained VT on 07/10/24. No other device alerts since then, but patient has a h/o VT
rates below detection zone. Patient also with h/o paroxysmal Afib. He had an outpatient CV for Afib 03/11/24 and recurred with Afib within 3 weeks. His amiodarone dose was increased to 200 mg BID approx 03/26/24 and he had another CV 04/07/24. He was
seen in the office 06/13/24 and was in SR on device check so his amiodarone dose was decreased to 300 mg daily. Patient reports feeling jittery and weak leading to him stumbling starting on Thursday, but his daughters are sitting bedside and state he
has been acting that way for 2 weeks. Patient finally came to [facility] this AM because he is retching to vomit as well and patient was suspicious that his potassium level was high, he has a h/o hyperkalemia. He reports that because his weight has been
low that he has not been taking his usual doses of Lasix 40 mg daily. He does not take a potassium supplement. He takes lisinopril 2.5 mg daily chronically. He denies palpitations. No chest pain. His potassium was corrected in the ER and is now
normal.
-Urgent device check in the ER. Tele and ECGs reviewed by me and look like possible Afib with RVR. Await device check given h/o slow VT.
-Overall hemodynamically stable with BP 120/69 and patient denies chest pain or palpitations.
-Patient has recurred with Afib starting 07/05/24 AM. Consider increasing amiodarone dose back to 200 mg BID. Dose was decreased to 300 mg daily on 06/13/24.
-INR is 3.77 in the ER today
-EF was 34% by last echo 10/30/23. Recheck echo given Troponin elevation
-Trend Troponin. No chest pain. No ST elevations.
-Patient reports weight has been down and he has not been taking doses of Lasix. Check pro-BNP.
-GDMT includes Toprol XL 25 mg BID, lisinopril 2.5 mg daily
-Patient with a known history of sustained VT and he had ATP 04/09/24. No evidence of VT on device check in the ER today.
-Patient with NICM. 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 LAD, CX and RCA with �Luminal irregularities
[2024-07-06] MEDS: PACERONE 300 MG PO (07:39)
[2024-07-06] MEDS: TOPROL XL 25 MG PO (07:40)
[2024-07-06] MEDS: SODIUM BICARBONATE 1950 MG PO ×2 (07:40→20:53)
[2024-07-06] MEDS: FEOSOL 325 MG PO (09:50)
[2024-07-06] MEDS: PROTONIX 20 MG PO (09:50)
[2024-07-06] MEDS: ZOLOFT 25 MG PO (09:50)
--- NOTE | 2024-07-06 09:57 | W.PN.HOSP.TC ---
Addendum entered and electronically signed by Viola Paniagua MD 07/06/24 16:56:
INR supratherapeutic - hold coumadin
-will need reversal if any e/o bleeding or worse tomorrow (caution as may get cardioverted and we don't want him subtherapeutic)
QTc remains prolonged
hold off on anti-nausea meds
also need to be cautious with Tigan given it's an IM injection
Original Note:
Today's Communication/Plan
-
see plan
Assessment / Plan
Assessment / Plan
Mr. Chan Mccoy is a 78 yo man with hx HFrEF, nonischemic cardiomyopathy with EF 34%, PAF on coumadin s/p multiple attempts at ablation, cardioversion 04/25, VT s/p ablation 2014 on amiodarone presents to the ER with weakness and found to be in
rapid afib with hyperkalemia. Concern for VT, per cardiology- device showed afib without VT.
1. Hyperkalemia - Patient presents with hyperkalemia of 5.9
- admitted to IVU
- potassium improving
- lokelma 10 daily
-continue IV fluids with sodium bicarb
- hold lisinopril
- low k diet
- appreciate renal consult
2. Acidosis - Hyperchloremic acidosis in setting of nausea/vomiting/poor PO intake
- continue with bicarb gtt 150 meq at 75ml/hr
- continue oral supplementation of 650mg sodium bicarb tid
-renal consult appreciated
Nausea/vomiting
-possible viral. HE had normal BM yesterday
-will obtain obstruction series
-symptomatic management
-consider GI involvement if no improvement
-He wants to stick with regular diet for now
-*with prolonged Qtc will change to IM Tigan PRN
DM II
- holding metformin
- sliding scale insulin
- hold farxiga for now
5 AFIB -
- amio increased to 200mg PO BID
- metoprolol succinate 35 bid
-IV Diltiazem gtt initiated for RVR
- continue warfarin 5/7.5 - *obtain INR now
DVT PPX - on warfarin *obtaining INR now
Code Status - DNR
Anticipated Discharge: > 48 hours
Subjective/Interval History
-
Date of Service: July 06, 2024
continues to have some nausea
no chest pain
no palpitations
no abdominal pain except soreness from dry heaving
Objective Data
-
Labs:
Laboratory Results
07/06/24 07/06/24 07/06/24
04:20 06:03 12:00
WBC 6.2
Hgb 14.6
Hct 43.2
Plt Count 165
Sodium 134 L Pending
Potassium 5.9 H 5.1 Pending
Chloride 105 Pending
Carbon Dioxide 14 L* Pending
BUN 82 H Pending
Creatinine 1.3 Pending
Glucose 249 H Pending
Calcium 10.4 H Pending
Total Bilirubin 0.7
AST 95 H
ALT 91 H
Alkaline Phosphatase 116
07/06/24
18:00
WBC
Hgb
Hct
Plt Count
Sodium Pending
Potassium Pending
Chloride Pending
Carbon Dioxide Pending
BUN Pending
Creatinine Pending
Glucose Pending
Calcium Pending
Total Bilirubin
AST
ALT
Alkaline Phosphatase
Vital Signs:
Vital Signs
Temp Pulse Resp BP Pulse Ox
98.6 F 123 13 101/79 99
07/06/24 08:00 07/06/24 08:30 07/06/24 08:30 07/06/24 08:30 07/06/24 08:30
I&O
07/05/24 07/06/24 07/07/24
06:59 06:59 06:59
Output Total 300 / 300
Balance -300 / -300
Review of Systems
-
History Source: Patient
All other systems: Reviewed and negative
Physical Exam
-
General: No Apparent Distress
HEENT: PERRLA
Respiratory: Clear to Auscultation; Negative Wheezes
Cardiac: S1/S2, Irregular Rhythm and Tachycardic
GI: Soft and Nontender
Musculoskeletal: No Edema
Skin: Warm and Dry; Negative Rash
Neuro: AO x 3
Psych: Calm
Data Reviewed
-
Diagnostic Radiology: Report Reviewed by me
Labs: Labs Reviewed by me
--- NOTE | 2024-07-06 10:52 | W.CON.NEPH ---
Consultation
-
Date/Time Consultation Requested: 07/06/24 9a
Date/Time Consultation Performed: 07/06/24 11a
Requesting Provider: Dr Ames
Performing Provider: Dr Lenz
Reason for Consultation: hyperkalemia
Medical History
-
Chief Complaint: Dizziness
History of Present Illness:
This is a 78-year-old gentleman who has history of bladder cancer status post cystectomy and ileal conduit diversion. He has had no issues with his urostomy. He has had no issues with his urostomy. He does have chronic metabolic acidosis likely
on the basis of his urostomy and this is maintained on high-dose bicarbonate therapy. He had seen me back in December 2022 for hyperkalemia. At that point it was thought that this was related in part to lisinopril, NSAIDs and metabolic acidosis. His
medications were adjusted and he was started on Lokelma 3 times weekly. He says that in December he was taken off Lokelma due to several hospitalizations and ultimately his insurance said that he could not get Lokelma any longer. He also has
diabetes mellitus type 2 on metformin therapy. His atrial fibrillation is treated with amiodarone and metoprolol. He is anticoagulated with warfarin. He has not had any issues in the recent past with his atrial fibrillation.
Past Medical History
Bladder cancer, cystectomy, ileal loop diversion, diverticulitis with sigmoid colectomy, atrial flutter/fibrillation, ventricular tachycardia AICD, as well as type II, hyperlipidemia, colon polyps, ischemic cardiomyopathy, maze, basal cell skin
cancer, bilateral carpal tunnel surgery, bilateral cataract surgery, bilateral ankle repair, prostatectomy, inguinal hernia repair on the left,
Social History
Tobacco: Non-Smoker
Alcohol: None
Family History
Family History: Not Pertinent
Allergies / Home Medications
Allergy/AdvReac Type Severity Reaction Status Date / Time
adhesive Allergy Rash Verified 07/06/24 04:11
doxycycline Allergy Nausea/Poor Verified 07/06/24 04:11
appetite
levofloxacin [From Levaquin] Allergy Nausea / Verified 07/06/24 04:11
Vomiting
�Medication �Instructions �Recorded �Confirmed �Type
metoprolol succinate 25 mg 25 mg PO BID Blood pressure 12/18/14 07/06/24 History
tablet,extended release 24 hr
atorvastatin 40 mg tablet 40 mg PO QPM High cholesterol 11/10/16 07/06/24 History
warfarin 5 mg tablet (Jantoven) 5 mg PO Q48H Blood clot 01/19/21 07/06/24 History
prevention/tx
amiodarone 200 mg tablet (Pacerone) 300 mg PO DAILY Arrhythmia 09/10/21 07/06/24 History
ferrous sulfate 325 mg (65 mg 325 mg PO DAILY Supplement 09/10/21 07/06/24 History
iron) tablet (iron)
lisinopril 2.5 mg tablet 2.5 mg PO DAILY Blood Pressure 02/06/22 07/06/24 History
sodium bicarbonate 650 mg tablet 1,950 mg PO BID Supplement 02/10/22 07/06/24 History
metformin 500 mg tablet,extended 500 mg PO QPM@1700 Diabetes 10/30/23 07/06/24 History
release 24 hr
pantoprazole 20 mg tablet,delayed 20 mg PO DAILY Gastrointestinal 10/30/23 07/06/24 History
release (Protonix) Issue
sertraline 50 mg tablet 25 mg PO DAILY Depression 10/30/23 07/06/24 History
dapagliflozin propanediol 10 mg 10 mg PO DAILY Heart Failure #30 11/01/23 07/06/24 Rx
tablet (Farxiga) tabs
Review of Systems
-
Decreased appetite, nausea
Physical Exam
Vital Signs
Vital Signs
Temp Pulse Resp BP Pulse Ox
98.6 F 123 27 101/73 99
07/06/24 08:00 07/06/24 09:49 07/06/24 09:49 07/06/24 09:49 07/06/24 09:45
Lab Results
WBC 6.2 10^3/uL (4.8-10.8) 07/06/24 04:20
RBC 4.47 10^6/uL (4.70-6.10) L 07/06/24 04:20
Hgb 14.6 g/dL (13.0-18.0) 07/06/24 04:20
Hct 43.2 % (39.0-52.0) 07/06/24 04:20
Plt Count 165 10^3/uL (130-400) 07/06/24 04:20
eGFR 56.93 07/06/24 04:20
Albumin 4.3 g/dl (3.5-5.0) 07/06/24 04:20
Physical Exam
Patient is awake alert oriented and in no distress. Mood and affect were pleasant, insight and judgment were good. Pupils are equal round and reactive to light, extraocular movements are intact, sclera were anicteric. Hearing was normal, ears and
nose are intact. Oropharynx was clear. Neck was supple with trachea midline and no thyromegaly. Heart was irregular rate and tachycardic without rubs. Lower extremities without edema. Lungs were clear to auscultation bilaterally and with normal
excursion. Abdomen was soft, nontender, with normal active bowel sounds, and no hepatosplenomegaly. Skin was without rash and with normal turgor.
Data Reviewed
-
Radiology: Image Personally Visualized and interpreted (Chest x-ray on October 30, 2024 by my reading shows no acute disease)
Medical Tests (Nuc Med, Echo etc): Image Personally Visualized and interpreted (EKG on July 06, 2024 by my reading shows atrial fibrillation right bundle branch block)
Labs: Labs Reviewed by me
Old Records: Reviewed
Critical Care Time (in minutes): TTKG December 2022 3.0
Assessment/Plan
-
Assessment
Diabetes mellitus type 2
Atrial fibrillation
Hypertension
Hyperkalemia
Metabolic acidosis
Hypercalcemia
Urostomy
Nausea
Plan
IV fluids with bicarbonate
Continue oral bicarbonate
Lokelma today
Serial BMP
Will need to determine outpatient potassium binder, likely Veltassa
Holding NATALIYA inhibitor for now.
Ensure supplement
[2024-07-06] MEDS: CARDIZEM 125 IV (11:03)
[2024-07-06 11:49] LABS: Glucose - Point of Care 238 mg/dl (70-99)
[2024-07-06] MEDS: NOVOLOG FLEXPEN-LOW RESISTANCE SC ×2 (12:09→15:30)
--- NOTE | 2024-07-06 13:46 | CM ---
Chart reviewed. I spoke with the patient and his daughter. Patient is independent of ADLS, lives at home alone in a [address], [address] [facility], ambulates with SPC and also has a stairglide at home. Patient's recently placed on Hospice. Patient is
interested in VN. Referral sent to [facility]. Plan is for the patient to go home with [facility]. CM to follow
[2024-07-06 14:47] LABS: Blood Urea Nitrogen 79 mg/dl (9-20); Calcium 10.4 mg/dl (8.4-10.2); Chloride 102 mmol/L (98-107); Estimated Creatinine Clearance 42 ml/min; Glucose 268 mg/dl (70-99); Potassium 4.9 mmol/L (3.5-5.1); Sodium 134 mmol/L (135-145); eGFR 56.93
[2024-07-06 14:49] LABS: Carbon Dioxide 12 mmol/L (22-30)
[2024-07-06 15:29] LABS: Glucose - Point of Care 241 mg/dl (70-99)
[2024-07-06] MEDS: COMPAZINE 5 MG IV (15:29)
[2024-07-06] MEDS: FLUSH (NSS) 2 FLUSH IV (15:31)
[2024-07-06] MEDS: NOVOLOG FLEXPEN-LOW RESISTANCE 2 UNITS SC (16:16)
[2024-07-06 16:20] LABS: PT 54.9 Sec (11.4-14.6)
[2024-07-06 16:34] LABS: Blood Urea Nitrogen 78 mg/dl (9-20); Calcium 10.1 mg/dl (8.4-10.2); Carbon Dioxide 19 mmol/L (22-30); Chloride 102 mmol/L (98-107); Estimated Creatinine Clearance 42 ml/min; Glucose 243 mg/dl (70-99); Magnesium 2.3 mg/dl (1.6-2.3); Potassium 5.4 mmol/L (3.5-5.1); Sodium 137 mmol/L (135-145); eGFR 56.93
[2024-07-06 16:36] LABS: INR 6.02
--- NOTE | 2024-07-06 17:15 | W.PN.UPDATE ---
Addendum entered and electronically signed by Jason Caraballo DO 07/06/24 17:28:
Review of telemetry, interrogation, and ECG appears to be either 2:1 AT with wide complex aberrant conduction vs WCT concerning for VT, however, difficult to assess given possible dual tachycardia. Patient resting comfortably in bed without
complaint. Hemodynamically stable BP 110/77. At this time, will start amiodarone gtt at 1 mg/min with 300 mg bolus and will start mexiletine 150 mg TID as outlined below. Continue to monitor on telemetry; if unstable, low threshold for
cardioversion. For now, plan for NPO after midnight with DCCV in AM. Discussed with patient's primary wiper blender as well, Dr. Yeager. Discussed with nursing.
Original Note:
Update Note
Progress Note Update
Increasing arrhythmia on tele. Device interrogated bedside again. Will change to amiodarone bolus and then gtt. Hold amiodarone PO dose. Started mexiletine 150 mg q8 hours with a dose now. Called and updated his daughter, Marguerite, by phone.
[2024-07-06] MEDS: CORDARONE 518 MG IV (17:46)
[2024-07-06] MEDS: CORDARONE 106 MG IV (17:46)
[2024-07-06] MEDS: MEXITIL 150 MG PO ×2 (17:48→23:34)
[2024-07-06] MEDS: LIPITOR 40 MG PO (17:49)
[2024-07-06 22:25] LABS: Glucose - Point of Care 262 mg/dl (70-99)
[2024-07-06 22:57] LABS: Blood Urea Nitrogen 77 mg/dl (9-20); Calcium 9.6 mg/dl (8.4-10.2); Carbon Dioxide 20 mmol/L (22-30); Chloride 100 mmol/L (98-107); Estimated Creatinine Clearance 46 ml/min; Glucose 274 mg/dl (70-99); Magnesium 2.2 mg/dl (1.6-2.3); Potassium 4.1 mmol/L (3.5-5.1); Sodium 133 mmol/L (135-145); eGFR > 60.00
--- NOTE | 2024-07-06 23:00 | PTCARENOTE ---
Received pt at change of shift plan of care discussed pt verbalized understanding- Amio gtt running @ 1mg/min as per order. Bicarb running as ordered. Urostomy leaking- supplies ordered from [facility] and changed with pts direction. Pt bathed. Slow VT in
the 100s-120s on the monitor.
[2024-07-07] VITALS (27 sets, daily range): BP systolic 61–159; BP diastolic 33–129; BMI 17.0
--- NOTE | 2024-07-07 00:37 | PTCARENOTE ---
@2345- Amio decreased to .5mg/min
[2024-07-07 03:57] LABS: Hematocrit 36.7 % (39.0-52.0); Hemoglobin 13.1 g/dL (13.0-18.0); Mean Corp Hgb Conc. 35.7 g/dL (33.0-37.0); Mean Corpuscular Hgb 32.8 pg (27.0-31.0); Mean Platelet Volume 12.7 fL (7.4-10.4); Platelet Count 135 10^3/uL (130-400); Red Blood Cell Count 3.99 10^6/uL (4.70-6.10); Red Cell Dist. Width 15.2 % (11.5-14.5); White Blood Cell Count 5.9 10^3/uL (4.8-10.8)
[2024-07-07 04:10] LABS: PT 59.7 Sec (11.4-14.6)
[2024-07-07 04:15] LABS: INR 6.69
[2024-07-07 04:20] LABS: Blood Urea Nitrogen 80 mg/dl (9-20); Calcium 9.5 mg/dl (8.4-10.2); Carbon Dioxide 20 mmol/L (22-30); Chloride 100 mmol/L (98-107); Estimated Creatinine Clearance 46 ml/min; Glucose 279 mg/dl (70-99); Magnesium 2.3 mg/dl (1.6-2.3); Potassium 4.2 mmol/L (3.5-5.1); Sodium 132 mmol/L (135-145); eGFR > 60.00
--- NOTE | 2024-07-07 06:37 | PTCARENOTE ---
Pt without complaints in bed- HR remains- slow VT? BPs have ranged anywhere from 80s/50s to 100s/70s. on amio. Bicarb still infusing.
--- NOTE | 2024-07-07 07:32 | W.PN.CARDCBS ---
Addendum entered and electronically signed by Isael Scott MD 07/07/24 10:49:
I saw and examined the patient.
The Tools And Parts Attendant's note was reviewed and I agree with the note.
Comment:
GEN: No distress, awake, Ox3
HEENT: supple, anicteric, mmm
LUNGS: CTA, no wheezes/rales
CV: Reg, S1/S2, 11/07 syst LSB, no gallop
ABD: soft, BS+, NT/ND
EXT: No edema
NEURO: Gross non-focal
SKIN: No rash
PLan:
Back in sinus rhythm after cardioversion. Will continue amiodarone drip and start oral amiodarone today. Continue mexiletine. Continue to follow closely on telemetry.
Will need to discuss level of care as we go forward as he remains very frail and weak.
Continue Toprol and lisinopril.
INR remains elevated. Continue to follow.
Original Note:
Today's Communication / Plan
-
ECG and Troponin pending
CV this AM
Cont amiodarone gtt for now and mexiletine
Impression / Plan
-
PCP: Dr. Swenson
Public Relations Sales Marketing: Dr. Yeager
Impression:
Sustained hemodynamically stable VT
Paroxysmal atrial tachycardia/fib with RVR
Hyperkalemia
Nausea and vomiting
Elevated Troponin
Chronic HFrEF
Paroxysmal atrial fibrillation
s/p PVI 06/2010, 11/2010, 09/2013
s/p flutter ablation 05/2012
s/p convergent MAZE 09/2014
s/p CV 03/11/24, recurred and amiodarone increased to 200 mg BID 03/26/24
s/p CV 04/07/24
Chronic amiodarone therapy
Chronic warfarin anticoagulation with supratherapeutic INR
Ventricular tachycardia
s/p VT ablation 12/2014
s/p sustained VT treated with ATP 04/09/24
s/p [employer] DC ICD
HTN
DM2
Echo 07/18/2020: EF 30 to 35%, global hypokinesis as well as inferior akinesis, stage III diastolic dysfunction, moderate MR, mild AR, mild TR, estimated PAP 40 mmHg
Echo 10/30/2023: EF 34% by volume and 20-25% visually, global hypokinesis, normal RV function, mod MR, mod TR with PAP 40-45 mmHg
Plan:
-Patient with WCT on arrival to [facility] 07/06/24 early AM, device interrogation with remote reader attempted by ER staff, but unsuccessful due to equipment malfunction (device could not obtain a signal to transmit). Patient had several ECGs in the ER in
the AM including one with what looks like AT and another with WCT concerning for possible VT. HRs in the 120s. [employer] rep came to ER to interrogate device and reported no VT, arrhythmia appeared to be Afib. Usual doses of Toprol XL 25 mg BID and
amiodarone 200 mg AM given, but tachycardia persisted. Became hypotensive with Cardizem gtt. Asymptomatic throughout, no chest pain, palpitations or SOB. BP improved, but HR continued in the 120s. Started amiodarone bolus and then gtt 07/06/24
evening, also added mexiletine 150 mg q 8 hours. Device interrogation repeated and concern for possible dual tachycardia. Plan is for CV 07/07/24 AM.
-HD stable overnight, remains asymptomatic on amiodarone gtt and mexiletine 150 mg q 8 hours.
-Plan is for CV 07/07/24 AM
-Repeat ECG and Troponin ordered and pending for 07/07/24 AM
-INR up to 6.69 on 07/07/24. Patient has not been eating due to stress and now due to nausea with retching. Obstruction series was clear. Would not give Vit K at this time due to planned CV.
-EF 34% by echo 10/30/23. Patient was using a Lasix PRN regimen prior to admission and reports he has not taken Lasix in weeks due to weight loss. He has not been eating much due to his entering hospice.
-GDMT includes Toprol XL 25 mg BID, lisinopril 2.5 mg daily
-Patient with NICM. 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 LAD, CX and RCA with �Luminal irregularities
HPI: Patient came to [facility] early this morning with stumbling and is being admitted with abnormal telemetry and hyperkalemia. Patient with a h/o slow VT and had ATP for sustained VT on 07/10/24. No other device alerts since then, but patient has a h/o
VT rates below detection zone. Patient also with h/o paroxysmal Afib. He had an outpatient CV for Afib 03/11/24 and recurred with Afib within 3 weeks. His amiodarone dose was increased to 200 mg BID approx 03/26/24 and he had another CV 04/07/24. He was
seen in the office 06/13/24 and was in SR on device check so his amiodarone dose was decreased to 300 mg daily. Patient reports feeling jittery and weak leading to him stumbling starting on Thursday, but his daughters are sitting bedside and state he
has been acting that way for 2 weeks. Patient finally came to [facility] this AM because he is retching to vomit as well and patient was suspicious that his potassium level was high, he has a h/o hyperkalemia. He reports that because his weight has been
low that he has not been taking his usual doses of Lasix 40 mg daily. He does not take a potassium supplement. He takes lisinopril 2.5 mg daily chronically. He denies palpitations. No chest pain. His potassium was corrected in the ER and is now
normal.
Progress Note - Public Relations Sales Marketing
Subjective
Date of Service: July 07, 2024
He did not sleep much
Objective
Labs:
07/07/24 03:51
07/07/24 03:51
Labs
Hgb 13.1 g/dL (13.0-18.0) 07/07/24 03:51
Hct 36.7 % (39.0-52.0) L 07/07/24 03:51
Plt Count 135 10^3/uL (130-400) 07/07/24 03:51
PT 59.7 Sec (11.4-14.6) H 07/07/24 03:51
INR 6.69 H* 07/07/24 03:51
Sodium 132 mmol/L (135-145) L 07/07/24 03:51
Potassium 4.2 mmol/L (3.5-5.1) 07/07/24 03:51
BUN 80 mg/dl (9-20) H 07/07/24 03:51
Creatinine 1.2 mg/dL (0.7-1.3) 07/07/24 03:51
Glucose 279 mg/dl (70-99) H 07/07/24 03:51
Troponins
07/06/24
04:30
Troponin I 0.051 H*
Vital Signs and I&O:
Vital Signs
Temp Pulse Resp BP Pulse Ox
97.8 F 116 18 108/76 97
07/07/24 03:40 07/07/24 04:00 07/07/24 03:40 07/07/24 04:00 07/07/24 03:40
Vital Signs
Temp Pulse Resp BP Pulse Ox
97.8 F 116 18 108/76 97
07/07/24 03:40 07/07/24 04:00 07/07/24 03:40 07/07/24 04:00 07/07/24 03:40
Intake & Output
07/05/24 07/06/24 07/07/24 07/08/24
06:59 06:59 06:59 06:59
Intake Total 1495 / 1495
Output Total 300 / 300 415 / 415
Balance -300 / -300 1080 / 1080
Physical Exam
Physical Exam
GEN: AAO x3
SKIN: No rash
HEENT: EOMI
LUNGS: No wheeze or rales
CV: WCT on tele
ABD: ND
EXT: No edema B/L
NEURO: No focal or lateralizing weakness
--- NOTE | 2024-07-07 07:41 | W.PN.UPDATE ---
Update Note
Progress Note Update
Patient seen this a.m. and discussion at bedside regarding options. Reviewed data from the last 48 hours. He is felt palpitations for 2 days and relatively unwell. Unfortunately his is on hospice and the increased stress is likely the
underlying mechanism of tachycardia he feels. Device interrogation reviewed demonstrating underlying atrial tachycardia which is atypical and upon review of ECGs from the emergency room yesterday and yesterday afternoon he has dual tachycardia with
underlying atrial tachycardia (310msec) and ventricular tachycardia at a slower rate of 113 bpm below his treatment zones which is right bundle right superior axis. He is hemodynamically tolerating this and was started on IV amiodarone last evening
and mexiletine 150 mg 3 times daily. We will plan for cardioversion today on IV amiodarone and mexiletine PO tid and p.o. medications post cardioversion would be amiodarone 200 mg twice daily and mexiletine 150 mg 3 times daily. If he has
recurrent tachycardia we did discuss VT ablation and given his overall general frailty and recent significant weight loss would also consider SBRT given his clinical picture. He also has multiple metabolic abnormalities and markedly increased BUN
to creatinine ratio.
History of multiple atrial ablations (last convergent MAZE 2013 with epicardial access) and two VT ablations at (endo/epi 2009 and endo only 2014) making repeat epicardial access likely difficult. He had relative quiescence with occasional
breakthrough from 2014 until recently.
Mr. Rubin is agreeable to proceed with cardioversion today and understands his additional options of VT ablation or SBRT for VT.
--- NOTE | 2024-07-07 07:43 | W.PN.HOSP.TC ---
Today's Communication/Plan
-
NPO for cardioversion
Assessment / Plan
Assessment / Plan
Mr. Chan Mccoy is a 78 yo man with hx HFrEF, nonischemic cardiomyopathy with EF 34%, PAF on coumadin s/p multiple attempts at ablation, cardioversion 04/25, VT s/p ablation 2014 on amiodarone presents to the ER with weakness and found to be in
rapid afib with hyperkalemia. Concern for VT, per cardiology- device showed afib without VT.
x-ray
IMPRESSION:
There is a small amount of enteric contrast material noted, as described. No recent studies at this facility are identified to suggest recent oral contrast ingestion. Clinical correlation is necessary.
No evidence of bowel obstruction or ileus. No free air.
No acute cardiopulmonary process.
Hyperkalemia - Patient presents with hyperkalemia of 5.9
- admitted to IVU
- hyperkalemia resolved
-stop standing Lokelma
-continue IV fluids with sodium bicarb
- hold lisinopril
- low k diet
- appreciate renal consult
AFIB with RVR and VT
- dual tachycardia with underlying atrial tachycardia (310msec) and ventricular tachycardia
- amio gtt initiated as well as mexiletine 150 mg 3 times daily
- metoprolol succinate 25 bid
- hold coumadin with elevated INR
- appreciate cardiology
- NPO for cardioversion this AM
Acidosis - Hyperchloremic acidosis in setting of nausea/vomiting/poor PO intake
- continue with bicarb gtt 150 meq at 75ml/hr
- continue oral supplementation of 650mg sodium bicarb tid
-renal consult appreciated
- acidosis improving
Nausea/vomiting
-possible viral. HE had normal BM 07/05
-obstruction series above neg - is contrast material Lokelma? no recent contrast intake
-symptomatic management
-consider GI involvement if no improvement
-He wants to stick with regular diet for now
-prologned Qtc and elevated INR - not a lot of options for nausea management (want to avoid IM injections) - can give PRN benadryl if necessary
DM II
- holding metformin
- sliding scale insulin
- hold farxiga for now
- start low dose lantus this evening
Supratherpeutic INR
-hold coumadin
DVT PPX - INR supratherapeutic
Code Status - DNR
Anticipated Discharge: > 48 hours
Subjective/Interval History
-
Date of Service: July 07, 2024
feeling better today
not nauseated
no chest pain
Objective Data
-
Labs:
Laboratory Results
07/06/24 07/07/24
22:34 03:51
WBC 5.9
Hgb 13.1
Hct 36.7 L
Plt Count 135
PT 59.7 H
INR 6.69 H*
Sodium 133 L 132 L
Potassium 4.1 4.2
Chloride 100 100
Carbon Dioxide 20 L 20 L
BUN 77 H 80 H
Creatinine 1.2 1.2
Glucose 274 H 279 H
Calcium 9.6 9.5
Vital Signs:
Vital Signs
Temp Pulse Resp BP Pulse Ox
98.4 F 116 20 108/76 97
07/07/24 07:30 07/07/24 04:00 07/07/24 07:30 07/07/24 04:00 07/07/24 07:30
I&O
07/06/24 07/07/24 07/08/24
06:59 06:59 06:59
Intake Total 1495 / 1495
Output Total 300 / 300 415 / 415
Balance -300 / -300 1080 / 1080
Review of Systems
-
History Source: Patient
All other systems: Reviewed and negative
Physical Exam
-
General: No Apparent Distress
HEENT: PERRLA
Respiratory: Clear to Auscultation; Negative Wheezes
Cardiac: S1/S2, Irregular Rhythm and Tachycardic
GI: Soft and Nontender
Musculoskeletal: No Edema
Skin: Warm and Dry; Negative Rash
Neuro: AO x 3
Psych: Calm
Data Reviewed
-
Diagnostic Radiology: Report Reviewed by me
Labs: Labs Reviewed by me
[2024-07-07] MEDS: MEXITIL 150 MG PO ×3 (07:58→23:09)
[2024-07-07] MEDS: PROTONIX 20 MG PO (07:59)
[2024-07-07] MEDS: SODIUM BICARBONATE 1950 MG PO ×2 (07:59→20:07)
[2024-07-07] MEDS: ZOLOFT 25 MG PO (08:00)
[2024-07-07 08:12] LABS: Glucose - Point of Care 309 mg/dl (70-99)
[2024-07-07] MEDS: NOVOLOG FLEXPEN-LOW RESISTANCE 4 UNITS SC ×3 (08:14→18:04)
[2024-07-07 09:18] LABS: Glycohemoglobin (HgbA1c) 8.7 % (4.0-5.6)
--- NOTE | 2024-07-07 09:24 | PTCARENOTE ---
Received patient at change of shift. Patient was resting in bed, but alert and oriented. BP 88/60, Slow VT 110s-120s, 97% on room air. Amio drip in Rt. upper arm running at 16.7 mL/hr (0.5 mg/min) and bicarb in left upper arm running at 75 mL/hr.
Patient NPO for MATHEUS/CV today. Discussed plan of care. Call gallardo within reach.
Transported to label operator.
--- NOTE | 2024-07-07 09:31 | ITS.CL.CARDI ---
Addendum entered and electronically signed by Jaydon Yeager MD 07/07/24 10:18:
After Dr. Scott performed the cardioversion I reprogrammed his VT zone to 110 bpm to 149 bpm with ATP therapies only, 150 bpm to 180 bpm VT with ATP and ICD therapies and above 180 with a VF zone and ICD therapies. This hopefully will cover his
slow ventricular tachycardia if he has recurrence and we will continue amiodarone 200 mg twice daily and mexiletine 150 mg 3 times daily at discharge.
Original Note:
Pedigree Tracer - Cardioversion
Cardioversion
Procedure Report:
Date of Procedure:
Procedure: Cardioversion
Indication: Symptomatic atrial fibrillation with dual tachycardia and Ventricular tachycardia
Performing Physician: Ford Scott MD
Technique: The patient was brought to the holding area. Signed informed consent was obtained. A time out was called and performed. The patient was anesthetized by the anesthesia service. Anticoagulation status was reviewed and appropriate. R2 pads
were placed anteriorly and posteriorly. A 200 J synchronized biphasic shock restored normal sinus rhythm without significant bradycardia. There were no complications.
Conclusion: Uncomplicated cardioversion from dual tachycardia to sinus rhythm.
Recommendation: Routine post cardioversion care. Continue cuff turner anticoagulation.
--- NOTE | 2024-07-07 11:41 | W.PN.NEPH.PH ---
Today's Communication / Plan
-
IVF
Assessment/Plan
-
Assessment
Diabetes mellitus type 2
Atrial fibrillation
Hypertension
Hyperkalemia
Metabolic acidosis
Hypercalcemia
Urostomy
Nausea
VT
Plan
IV fluids with bicarbonate can be continued for today
Continue oral bicarbonate
no lokelma
Serial BMP
Will need to determine outpatient potassium binder, likely Veltassa
Holding NATALIYA inhibitor for now.
Ensure supplement
VT management per cardiology
-
-
Date of Service: July 07, 2024
CC / HPI / ROS
-
Chief Complaint:
hyperkalemia
History of Present Illness:
K normal
s/p cardioversion today
INR high 6.69 on coumadin
Na slightly low 132
mild metabolic acidosis on bicarb IVF
Review of Systems:
no CP/SOB
Labs
-
Labs:
WBC 5.9 10^3/uL (4.8-10.8) 07/07/24 03:51
RBC 3.99 10^6/uL (4.70-6.10) L 07/07/24 03:51
Hgb 13.1 g/dL (13.0-18.0) 07/07/24 03:51
Hct 36.7 % (39.0-52.0) L 07/07/24 03:51
Plt Count 135 10^3/uL (130-400) 07/07/24 03:51
Sodium 132 mmol/L (135-145) L 07/07/24 03:51
Potassium 4.2 mmol/L (3.5-5.1) 07/07/24 03:51
Chloride 100 mmol/L (98-107) 07/07/24 03:51
Carbon Dioxide 20 mmol/L (22-30) L 07/07/24 03:51
BUN 80 mg/dl (9-20) H 07/07/24 03:51
Creatinine 1.2 mg/dL (0.7-1.3) 07/07/24 03:51
eGFR > 60.00 07/07/24 03:51
Glucose 279 mg/dl (70-99) H 07/07/24 03:51
Calcium 9.5 mg/dl (8.4-10.2) 07/07/24 03:51
Albumin 4.3 g/dl (3.5-5.0) 07/06/24 04:20
Physical Exam
-
Vital Signs:
Vital Signs
Temp Pulse Resp BP Pulse Ox
97.6 F 109 20 117/103 97
07/07/24 11:09 07/07/24 08:02 07/07/24 11:09 07/07/24 08:02 07/07/24 11:09
Cardiovascular:: Regular rate and rhythm
Respiratory:: Bilateral: Coarse
Lung Excursion:: Normal
Abdomen:: Nontender and Soft
Bowel Sounds:: Normal
Extremity Edema:: None: Bilateral:
--- NOTE | 2024-07-07 11:53 | PTCARENOTE ---
Pt noted to go back into an Atrial tach/ V tach at 1137, post cardioversion. Vital signs obtained. MD notified. Will monitor.
[2024-07-07 12:00] LABS: Glucose - Point of Care 329 mg/dl (70-99)
[2024-07-07] MEDS: PACERONE 400 MG PO ×3 (12:29→23:09)
[2024-07-07] MEDS: SODIUM BICARBONATE 1150 MEQ IV ×2 (12:32→23:10)
--- NOTE | 2024-07-07 13:33 | PN.CDI ---
CDI
- -
CDI:
Physician Documentation Request
Admit Date: 07/06/24 07:35
Dear Doctor Arcelia,
Please review the following and provide your response in the progress notes.
Clinical Indicators:
Air Conditioning Insulation Installer, 07/07
#Reason for RD visit: BMI 16.9 (underweight)
#He stated that over the past 3 years he has lost 100 lbs.
Meets ASPEN requirements for malnutrition due to poor intake
#...(avg. less than 75% of meals eaten for over 3 months) and
#...moderate temporal wasting, and moderate clavical wasting.
Based on the above information and your clinical assessment, which of the following most accurately represents the patient's nutritional status?
Malnutrition (specify if mild, moderate or severe)
Underweight, BMI, 16.9
Other (please specify)
[place] Criteria (ACP Hospitalist 2017)
2 or more criteria must be present for either
non severe or severe malnutrition
Note that the criteria differs related to the
presence of an acute or chronic illness
Acute Illness Chronic Illness
Energy Intake Non Severe: <75% for >7 days Non Severe: <75% for >1 month
Severe: <50% for >5 days Severe: <75% for >1 month
Weight Loss Non Severe: 1-2% over 1 week Non Severe: 5% over 1 month
5% over 1 month 7.5% over 3 months
7.5% over 3 months 10% over 6 months
1 year N/A 20% over 1 year
Severe: >2% over 1 week Severe: >5% over 1 month
>5% over 1 month >7.5% over 3 months
>7.5% over 3 months >10% over 6 months
1 year N/A >20% over 1 year
Body Fat Non Severe: Mild Decrease Non Severe: Mild Loss
Severe: Moderate Decrease Severe: Severe Loss
Muscle Mass Non Severe: Mild Decrease Non Severe: Mild Loss
Severe: Moderate Decrease Severe: Severe Loss
Use of terms such as suspected, likely, concern for, or probable (associated with a specific diagnosis that is being evaluated, monitored, or treated as if it exists) are acceptable and can be coded in the inpatient setting, when documented at the
time of discharge.
Thank you,
Kayley Fragoso RN BSN CCDS
CDI Specialist
please contact via tiger text
Please use your independent medical judgment in providing your response.
--- NOTE | 2024-07-07 13:41 | PN.CDI ---
CDI
- -
CDI:
Physician Documentation Request
Admit Date: 07/06/24 07:35
Dear Doctor Arcelia,
Please review the following and provide your response in the progress notes.
Clinical Indicators:
Laboratory Tests
07/06/24 07/07/24
04:30 08:43
Troponin I 0.051 H* 0.050 H*
Please clarify the etiology of the elevated troponin:
Non ischemic myocardial injury
Abnormal lab value, clinically insignificant
Other(please specify)
Use of terms such as suspected, likely, concern for, or probable (associated with a specific diagnosis that is being evaluated, monitored, or treated as if it exists) are acceptable and can be coded in the inpatient setting, when documented at the
time of discharge.
Thank you,
Kayley Fragoso RN BSN CCDS
CDI Specialist
please contact via tiger text
Please use your independent medical judgment in providing your response.
--- NOTE | 2024-07-07 14:33 | PN.CDI ---
CDI
- -
CDI:
Physician Documentation Request
Admit Date: 07/06/24 07:35
Dear Doctor Arcelia,
Please review the following and provide your response in the progress notes.
Clinical Indicators:
Laboratory Tests
07/06/24 07/06/24 07/06/24
04:20 11:38 16:01
Sodium 134 L 134 L 137
07/06/24 07/07/24
22:34 03:51
Sodium 133 L 132 L
Based on the above and your clinical assessment, please clarify in the progress notes, the appropriate diagnosis, if significant, that supports the above abnormalities and additional evaluation, monitoring and/or treatment rendered:
Hyponatremia
Abnormal lab value, clinically insignificant
Other(please specify)
Use of terms such as suspected, likely, concern for, or probable (associated with a specific diagnosis that is being evaluated, monitored, or treated as if it exists) are acceptable and can be coded in the inpatient setting, when documented at the
time of discharge.
Thank you,
Kayley Fragoso RN BSN CCDS
CDI Specialist
please contact via tiger text
Please use your independent medical judgment in providing your response.
--- NOTE | 2024-07-07 14:53 | VATNOTE ---
PICC ordered for IV amiodarone. INR is above the parameter to safely place PICC @ 6.6. New IV placed for IV amiodarone
--- NOTE | 2024-07-07 15:10 | PTCARENOTE ---
Pt's IV site that had amiodarone infusing was accidentally removed when pt on bedside commode. New IV site in right arm inserted by IV team RN. Amiodarone drip restarted within 15 minutes of being off from dislodgement. Amiodarone drip at 16.7 ml
infusing in right upper extremity. Will monitor.
[2024-07-07] MEDS: MIRALAX 17 GRAMS PO (15:39)
[2024-07-07] MEDS: SODIUM BICARBONATE IV (16:26)
[2024-07-07] MEDS: FEOSOL PO (16:32)
[2024-07-07 17:17] LABS: Glucose - Point of Care 300 mg/dl (70-99)
[2024-07-07] MEDS: LIPITOR 40 MG PO (18:05)
--- NOTE | 2024-07-07 18:08 | W.PN.UPDATE ---
Update Note
Progress Note Update
spoke with patient
he is considering options. we had further discussions regarding considering hospice, turning off ICD therapies, medical therapy for VT, SBRT, and invasive options. I am not sure there is significant value from further ablation but is on the list of
options. He communicated that he would like to try and continue on until his passes but is considering hospice. At the moment he is not ready to make that decision.
Would continue amiodarone/mexilitine and we adjusted therapy zones to provide ATP therapy for the slow VT.
Would consider PT eval and if he maintains sinus I would be open to DC in next 24-48hrs.
[2024-07-07] MEDS: CORDARONE 518 MG IV (20:08)
[2024-07-07 21:11] LABS: Glucose - Point of Care 294 mg/dl (70-99)
[2024-07-07] MEDS: ATIVAN 0.5 MG PO (23:09)
[2024-07-07] MEDS: LANTUS 0.05 UNITS SC (23:10)
--- NOTE | 2024-07-07 23:30 | PTCARENOTE ---
Pt rec'd at change of shift in sinus with first degree on telemetry. Brief short burst of ? slow Vt with overdrive pacing noted. Pt asymptomatic.
Requested Ativan at HS. Amio gtt infusing at 16.7 ml/hr. site patent without redness or edema noted. IV Bicarb infusing via left arm iv also patent.
[2024-07-08] VITALS (11 sets, daily range): BP systolic 97–146; BP diastolic 81–99; PULSE 71; O2SAT 96; BMI 17.6
[2024-07-08] MEDS: ATIVAN 0.5 MG PO ×2 (03:32→23:00)
[2024-07-08 03:46] LABS: Hematocrit 38.3 % (39.0-52.0); Hemoglobin 13.7 g/dL (13.0-18.0); Mean Corp Hgb Conc. 35.8 g/dL (33.0-37.0); Mean Corpuscular Hgb 33.4 pg (27.0-31.0); Mean Corpuscular Volume 93.4 fL (80.0-94.0); Mean Platelet Volume 12.8 fL (7.4-10.4); Platelet Count 119 10^3/uL (130-400); White Blood Cell Count 6.3 10^3/uL (4.8-10.8)
[2024-07-08 04:06] LABS: Blood Urea Nitrogen 75 mg/dl (9-20); Calcium 9.4 mg/dl (8.4-10.2); Carbon Dioxide 32 mmol/L (22-30); Chloride 95 mmol/L (98-107); Estimated Creatinine Clearance 61 ml/min; Glucose 232 mg/dl (70-99); Potassium 3.9 mmol/L (3.5-5.1); Sodium 135 mmol/L (135-145); eGFR > 60.00
--- NOTE | 2024-07-08 04:23 | PTCARENOTE ---
Pt stated he slept for 2 hrs but feels anxious again,asked for Ativan-dose given. Remains mostly A paced
[2024-07-08 08:22] LABS: Glucose - Point of Care 223 mg/dl (70-99)
[2024-07-08] MEDS: NOVOLOG FLEXPEN-LOW RESISTANCE 2 UNITS SC ×2 (08:26→17:50)
[2024-07-08] MEDS: FEOSOL 325 MG PO (08:27)
[2024-07-08] MEDS: SODIUM BICARBONATE 1950 MG PO ×2 (08:27→19:23)
[2024-07-08] MEDS: PACERONE 400 MG PO ×3 (08:28→23:01)
[2024-07-08] MEDS: PROTONIX 20 MG PO (08:29)
[2024-07-08] MEDS: MEXITIL 150 MG PO ×3 (08:29→23:00)
[2024-07-08] MEDS: ZOLOFT 25 MG PO (08:29)
--- NOTE | 2024-07-08 08:48 | W.PN.HOSP.TC ---
Addendum entered and electronically signed by Viola Paniagua MD 07/09/24 08:22:
hyponatremia
-stable
non-ischemic myocardial injury
-2/2 VT
-appreciate cardiology
severe protein malnutrition
-appreciate dietary
-continue ensure
Original Note:
Today's Communication/Plan
-
repeat INR now
continue amio, Mexitil
appreciate cardiology
appreciate renal
PT/OT ordered
Assessment / Plan
Assessment / Plan
Mr. Chan Mccoy is a 78 yo man with hx HFrEF, nonischemic cardiomyopathy with EF 34%, PAF on coumadin s/p multiple attempts at ablation, cardioversion 04/25, VT s/p ablation 2014 on amiodarone presents to the ER with weakness and found to be in
rapid afib with hyperkalemia. Concern for VT, per cardiology- device showed afib without VT.
x-ray
IMPRESSION:
There is a small amount of enteric contrast material noted, as described. No recent studies at this facility are identified to suggest recent oral contrast ingestion. Clinical correlation is necessary.
No evidence of bowel obstruction or ileus. No free air.
No acute cardiopulmonary process.
Hyperkalemia - Patient presents with hyperkalemia of 5.9
- admitted to IVU
- hyperkalemia resolved
-stop standing Lokelma
- acidosis resolved - stop bicarb fluids
- hold lisinopril
- low k diet
- appreciate renal consult
AFIB with RVR and VT
- dual tachycardia with underlying atrial tachycardia (310msec) and ventricular tachycardia
- amio gtt initiated as well as mexiletine 150 mg 3 times daily
- [employer]IST metoprolol succinate 25 bid held
- hold coumadin with elevated INR --> repeat value this AM
- appreciate cardiology
- s/p unsuccessful cardioversion 07/07 - now in sinus with increased amio load
Acidosis - Hyperchloremic acidosis in setting of nausea/vomiting/poor PO intake
- resolved
- appreciate renal
- hold Metformin
Nausea/vomiting
-likely related to arrhythmia - improved this AM, now in sinus
-obstruction series above neg - is contrast material Lokelma? no recent contrast intake
-symptomatic management
-prologned Qtc and elevated INR - not a lot of options for nausea management (want to avoid IM injections) - can give PRN benadryl if necessary
DM II
- holding metformin
- sliding scale insulin
- resume farxiga for now
- continue low dose lantus this evening
- A1c 8.7%
Supratherpeutic INR
-hold coumadin
DVT PPX - INR supratherapeutic
Code Status - DNR
Anticipated Discharge: 24 - 48 hours
Subjective/Interval History
-
Date of Service: July 08, 2024
seen with daughter at bedside
now in sinus
denies pain, denies nausea - thinking about what to eat
Objective Data
-
Labs:
Laboratory Results
07/08/24
03:28
WBC 6.3
Hgb 13.7
Hct 38.3 L
Plt Count 119 L
Sodium 135
Potassium 3.9
Chloride 95 L
Carbon Dioxide 32 H
BUN 75 H
Creatinine 0.9
Glucose 232 H
Calcium 9.4
Vital Signs:
Vital Signs
Temp Pulse Resp BP Pulse Ox
98.2 F 70 16 121/81 97
07/08/24 06:48 07/08/24 04:00 07/08/24 06:48 07/08/24 08:28 07/08/24 06:48
I&O
07/07/24 07/08/24 07/09/24
06:59 06:59 06:59
Intake Total 1495 / 1495 3072.9 / 3072.9
Output Total 415 / 415 2625 / 2625
Balance 1080 / 1080 447.9 / 447.9
Review of Systems
-
History Source: Patient
All other systems: Reviewed and negative
Physical Exam
-
General: No Apparent Distress
HEENT: PERRLA
Respiratory: Clear to Auscultation; Negative Wheezes
Cardiac: S1/S2 and Irregular Rhythm
GI: Soft and Nontender
Musculoskeletal: No Edema
Skin: Warm and Dry; Negative Rash
Neuro: AO x 3
Psych: Calm
Data Reviewed
-
Diagnostic Radiology: Report Reviewed by me
Labs: Labs Reviewed by me
--- NOTE | 2024-07-08 09:02 | W.PN.NEPH.PH ---
Today's Communication / Plan
-
observe
Can discontinue further IV bicarb
Assessment/Plan
-
Assessment
Diabetes mellitus type 2
Atrial fibrillation
Hypertension
Hyperkalemia
Metabolic acidosis
Hypercalcemia
Urostomy
Nausea
VT
Plan
IV fluids with bicarbonate can be discontinued
Holding NATALIYA inhibitor due to hypotension and hyperkalemia
Continue oral bicarbonate
no lokelma needed for now
Serial BMP
Will need to determine outpatient potassium binder, likely [place]
Ensure supplement
VT management per cardiology
-
-
Date of Service: July 08, 2024
CC / HPI / ROS
-
Chief Complaint:
hyperkalemia
History of Present Illness:
K normal
s/p cardioversion 07/07/2024
INR high 6.69 on coumadin
Hemodynamically saw
Acidosis improved
Review of Systems:
no CP/SOB
Labs
-
Labs:
WBC 6.3 10^3/uL (4.8-10.8) 07/08/24 03:28
RBC 4.10 10^6/uL (4.70-6.10) L 07/08/24 03:28
Hgb 13.7 g/dL (13.0-18.0) 07/08/24 03:28
Hct 38.3 % (39.0-52.0) L 07/08/24 03:28
Plt Count 119 10^3/uL (130-400) L 07/08/24 03:28
Sodium 135 mmol/L (135-145) 07/08/24 03:28
Potassium 3.9 mmol/L (3.5-5.1) 07/08/24 03:28
Chloride 95 mmol/L (98-107) L 07/08/24 03:28
Carbon Dioxide 32 mmol/L (22-30) H 07/08/24 03:28
BUN 75 mg/dl (9-20) H 07/08/24 03:28
Creatinine 0.9 mg/dL (0.7-1.3) 07/08/24 03:28
eGFR > 60.00 07/08/24 03:28
Glucose 232 mg/dl (70-99) H 07/08/24 03:28
Calcium 9.4 mg/dl (8.4-10.2) 07/08/24 03:28
Albumin 4.3 g/dl (3.5-5.0) 07/06/24 04:20
Physical Exam
-
Vital Signs:
Vital Signs
Temp Pulse Resp BP Pulse Ox
98.2 F 70 16 121/81 97
07/08/24 06:48 07/08/24 04:00 07/08/24 06:48 07/08/24 08:28 07/08/24 06:48
Cardiovascular:: Regular rate and rhythm
Respiratory:: Bilateral: Coarse
Lung Excursion:: Normal
Abdomen:: Nontender and Soft
Bowel Sounds:: Normal
Extremity Edema:: None: Bilateral:
--- NOTE | 2024-07-08 09:56 | PTCARENOTE ---
Received patient at change of shift. Patient was resting in bed. BP 121/81, 70s A paced and A-V paced, 97% on room air. Bicarb drip discontinued at 7:59. Amiodarone running in right forearm IV at 16.7 mL/hr. Denies any pain. Call gallardo within reach.
[2024-07-08] MEDS: FARXIGA 10 MG PO (10:01)
--- NOTE | 2024-07-08 10:34 | W.PN.CARDCBS ---
Addendum entered and electronically signed by Frank Pascal MD 07/08/24 15:59:
I saw and examined the patient.
The MEDICAL SALES or PA's note was reviewed and I agree with the note.
Comment: General: Well developed, well nourished in NAD.
Neck: Supple, no JVD, HJR, carotids +2 B/L, no bruits bilaterally.
Heart: Non displaced PMI, RRR, no murmurs, No S3, S4, no rubs.
Lungs: Scattered rhonchi
Extremities: No clubbing, cyanosis or edema bilaterally.
Neuro: Grossly nonfocal, awake, alert and oriented x3.
Remains in sinus rhythm. Will discontinue IV amiodarone and continue oral amiodarone 400 mg p.o. 3 times daily. Probable discharge on 07/09 on amiodarone 200 mg p.o. twice daily.
Original Note:
Today's Communication / Plan
-
continue IV/po amio and mexiletine today
follow rhythm, INR
Impression / Plan
-
PCP: Dr. Swenson
Biological Sciences Professor: Dr. Yeager
Impression:
Sustained hemodynamically stable VT
Paroxysmal atrial tachycardia/fib with RVR
Hyperkalemia
Nausea and vomiting
Elevated Troponin
Chronic HFrEF
Paroxysmal atrial fibrillation
s/p PVI 06/2010, 11/2010, 09/2013
s/p flutter ablation 05/2012
s/p convergent MAZE 09/2014
s/p CV 03/11/24, recurred and amiodarone increased to 200 mg BID 03/26/24
s/p CV 04/07/24
Chronic amiodarone therapy
Chronic warfarin anticoagulation with supratherapeutic INR
Ventricular tachycardia
s/p VT ablation 12/2014
s/p sustained VT treated with ATP 04/09/24
s/p [employer] DC ICD
HTN
DM2
Echo 07/18/2020: EF 30 to 35%, global hypokinesis as well as inferior akinesis, stage III diastolic dysfunction, moderate MR, mild AR, mild TR, estimated PAP 40 mmHg
Echo 10/30/2023: EF 34% by volume and 20-25% visually, global hypokinesis, normal RV function, mod MR, mod TR with PAP 40-45 mmHg
Plan:
-Patient with WCT on arrival to [facility] 07/06/24 early AM, device interrogation with remote reader attempted by ER staff, but unsuccessful due to equipment malfunction (device could not obtain a signal to transmit). Patient had several ECGs in the ER in
the AM including one with what looks like AT and another with WCT concerning for possible VT. HRs in the 120s. [employer] rep came to ER to interrogate device and reported no VT, arrhythmia appeared to be Afib. Usual doses of Toprol XL 25 mg BID and
amiodarone 200 mg AM given, but tachycardia persisted. Became hypotensive with Cardizem gtt. Asymptomatic throughout, no chest pain, palpitations or SOB. BP improved, but HR continued in the 120s. Started amiodarone bolus and then gtt 07/06/24
evening, also added mexiletine 150 mg q 8 hours. Device interrogation repeated and concern for possible dual tachycardia.
-medically complex
-burden of VT appears to be decreasing on review of tele overnight, mostly apaced or av paced
-continue amio IV/po and mexiletine 150mg Q8H
-INR pending 07/08. attempting to hold off on vitamin K given recent CV
-EF 34% by echo 10/30/23. Patient was using a Lasix PRN regimen prior to admission and reports he has not taken Lasix in weeks due to weight loss. He has not been eating much due to his entering hospice.
-GDMT includes Toprol XL 25 mg BID, farxiga. holding OP lisinopril due to hypotension, hyperkalemia
-Patient with NICM. 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 LAD, CX and RCA with Luminal irregularities
-ongoing family discussions regarding goals of care. he is DNR
-d/w nursing
HPI: Patient [facility] early this morning with stumbling and is being admitted with abnormal telemetry and hyperkalemia. Patient with a h/o slow VT and had ATP for sustained VT on 07/10/24. No other device alerts since then, but patient has a h/o
VT rates below detection zone. Patient also with h/o paroxysmal Afib. He had an outpatient CV for Afib 03/11/24 and recurred with Afib within 3 weeks. His amiodarone dose was increased to 200 mg BID approx 03/26/24 and he had another CV 04/07/24. He was
seen in the office 06/13/24 and was in SR on device check so his amiodarone dose was decreased to 300 mg daily. Patient reports feeling jittery and weak leading to him stumbling starting on Thursday, but his daughters are sitting bedside and state he
has been acting that way for 2 weeks. Patient finally came to [facility] this AM because he is retching to vomit as well and patient was suspicious that his potassium level was high, he has a h/o hyperkalemia. He reports that because his weight has been
low that he has not been taking his usual doses of Lasix 40 mg daily. He does not take a potassium supplement. He takes lisinopril 2.5 mg daily chronically. He denies palpitations. No chest pain. His potassium was corrected in the ER and is now
normal.
Progress Note - Biological Sciences Professor
Subjective
Date of Service: July 08, 2024
no complaints
Objective
Labs:
07/08/24 03:28
07/08/24 03:28
Labs
Hgb 13.7 g/dL (13.0-18.0) 07/08/24 03:28
Hct 38.3 % (39.0-52.0) L 07/08/24 03:28
Plt Count 119 10^3/uL (130-400) L 07/08/24 03:28
PT 59.7 Sec (11.4-14.6) H 07/07/24 03:51
INR 6.69 H* 07/07/24 03:51
Sodium 135 mmol/L (135-145) 07/08/24 03:28
Potassium 3.9 mmol/L (3.5-5.1) 07/08/24 03:28
BUN 75 mg/dl (9-20) H 07/08/24 03:28
Creatinine 0.9 mg/dL (0.7-1.3) 07/08/24 03:28
Glucose 232 mg/dl (70-99) H 07/08/24 03:28
Troponins
07/06/24 07/07/24
04:30 08:43
Troponin I 0.051 H* 0.050 H*
Vital Signs and I&O:
Vital Signs
Temp Pulse Resp BP Pulse Ox
98.2 F 70 16 121/81 97
07/08/24 06:48 07/08/24 09:00 07/08/24 06:48 07/08/24 08:28 07/08/24 06:48
Vital Signs
Temp Pulse Resp BP Pulse Ox
98.2 F 70 16 121/81 97
07/08/24 06:48 07/08/24 09:00 07/08/24 06:48 07/08/24 08:28 07/08/24 06:48
Intake & Output
07/06/24 07/07/24 07/08/24 07/09/24
07:59 07:59 07:59 07:59
Intake Total 1495 / 1495 3072.9 / 3072.9
Output Total 300 / 300 415 / 415 2625 / 2625 600 / 600
Balance -300 / -300 1080 / 1080 447.9 / 447.9 -600 / -600
[2024-07-08 11:48] LABS: PT 51.7 Sec (11.4-14.6)
[2024-07-08 12:41] LABS: Glucose - Point of Care 263 mg/dl (70-99)
[2024-07-08] MEDS: NOVOLOG FLEXPEN-LOW RESISTANCE 3 UNITS SC (13:00)
--- NOTE | 2024-07-08 14:11 | CM ---
Addendum entered by Kena Wiggins RN 07/08/24 16:12:
If discharge is cancelled please call lyubov Helms,
Addendum entered by Kena Wiggins RN 07/08/24 15:26:
I spoke to the patient's daughter, Marguerite, her sister Ibeth will transport the patient to [facility]. Please call candice Helms with any questions. Report to be called to [phone], DC instructions FAX to [phone]
Addendum entered by Kena Wiggins RN 07/08/24 15:25:
Authorization approved 07/08-07/15 Ref# [id number], NRD 07/16 Faxed to [phone].
Original Note:
Chart reviewed. Patient is independent of ADLS, lives alone in a [address] [facility], [address] [facility], ambulates with a SPC and a stair glide. Patient's was recently placed on Hospice at [facility]. PT evaluation recommending SNF. Referral placed to
[facility]. CM to follow
[2024-07-08] MEDS: DULCOLAX 10 MG RECTAL (16:18)
[2024-07-08 17:46] LABS: Glucose - Point of Care 207 mg/dl (70-99)
[2024-07-08] MEDS: LIPITOR 40 MG PO (17:50)
[2024-07-08] MEDS: COLACE 100 MG PO (19:23)
--- NOTE | 2024-07-08 19:44 | PTCARENOTE ---
Pt. received at change of shift. Pt. seen and assessed in room. Pt. AOx3. No complaints of pain at this time. VS WNL. Tele reading NSR. Urostomy intact, draining without issues. Continuing to monitor the patient at this time.
[2024-07-08 22:11] LABS: Glucose - Point of Care 255 mg/dl (70-99)
[2024-07-08] MEDS: LANTUS 0.05 UNITS SC (23:01)
[2024-07-09 04:03] VITALS: BP 115/86
[2024-07-09 04:04] VITALS: BMI 17.5
[2024-07-09 04:55] LABS: PT 48.3 Sec (11.4-14.6)
[2024-07-09 05:07] LABS: INR 5.22
[2024-07-09 05:10] LABS: Blood Urea Nitrogen 67 mg/dl (9-20); Calcium 9.6 mg/dl (8.4-10.2); Carbon Dioxide 33 mmol/L (22-30); Chloride 97 mmol/L (98-107); Estimated Creatinine Clearance 61 ml/min; Glucose 197 mg/dl (70-99); Magnesium 2.2 mg/dl (1.6-2.3); Potassium 3.7 mmol/L (3.5-5.1); Sodium 138 mmol/L (135-145); eGFR > 60.00
--- NOTE | 2024-07-09 07:58 | W.PN.HOSP.TC ---
Today's Communication/Plan
-
expect DC today after final specialist recommendations
Assessment / Plan
Assessment / Plan
Mr. Chan Mccoy is a 78 yo man with hx HFrEF, nonischemic cardiomyopathy with EF 34%, PAF on coumadin s/p multiple attempts at ablation, cardioversion 04/25, VT s/p ablation 2014 on amiodarone presents to the ER with weakness and found to be in
rapid afib with hyperkalemia. Concern for VT, per cardiology- device showed afib without VT.
x-ray
IMPRESSION:
There is a small amount of enteric contrast material noted, as described. No recent studies at this facility are identified to suggest recent oral contrast ingestion. Clinical correlation is necessary.
No evidence of bowel obstruction or ileus. No free air.
No acute cardiopulmonary process.
Hyperkalemia - Patient presents with hyperkalemia of 5.9
- admitted to IVU
- hyperkalemia resolved
-stop standing Lokelma
- acidosis resolved - stop bicarb fluids; stop metformin on DC
- hold lisinopril
- low k diet
- appreciate renal consult --> F/U final recs
AFIB with RVR and VT
- dual tachycardia with underlying atrial tachycardia (310msec) and ventricular tachycardia
- amio gtt initiated as well as mexiletine 150 mg 3 times daily
- LOOP SEWER metoprolol succinate 25 bid held
- s/p unsuccessful cardioversion 07/07 - now in sinus with increased amio load
- hold coumadin with elevated INR --> repeat value on Thursday
- appreciate cardiology
Acidosis - Hyperchloremic acidosis in setting of nausea/vomiting/poor PO intake
- resolved
- appreciate renal
- hold Metformin
Nausea/vomiting
-likely related to arrhythmia - improved this AM, now in sinus
-obstruction series above neg - is contrast material Lokelma? no recent contrast intake
-symptomatic management
-prologned Qtc and elevated INR - not a lot of options for nausea management (want to avoid IM injections) - can give PRN benadryl if necessary
DM II
- holding metformin
- sliding scale insulin
- resume farxiga for now
- continue low dose lantus this evening
- A1c 8.7%
Supratherpeutic INR
-hold coumadin
DVT PPX - INR supratherapeutic
Code Status - DNR
Anticipated Discharge: Today
Subjective/Interval History
-
Date of Service: July 09, 2024
feeling okay
no nausea
appetite OK but 'not too good'
Objective Data
-
Labs:
Laboratory Results
07/09/24
04:11
PT 48.3 H
INR 5.22 H*
Sodium 138
Potassium 3.7
Chloride 97 L
Carbon Dioxide 33 H
BUN 67 H
Creatinine 0.9
Glucose 197 H
Calcium 9.6
Vital Signs:
Vital Signs
Temp Pulse Resp BP Pulse Ox
97.9 F 74 20 146/82 92
07/09/24 04:03 07/08/24 23:01 07/08/24 19:35 07/08/24 23:01 07/08/24 22:50
I&O
07/08/24 07/09/24 07/10/24
06:59 06:59 06:59
Intake Total 3072.9 / 3072.9 593.65 / 593.65
Output Total 2625 / 2625 2650 / 2650
Balance 447.9 / 447.9 -35 / -
Review of Systems
-
History Source: Patient
All other systems: Reviewed and negative
Physical Exam
-
General: No Apparent Distress and Other (frail appearing)
HEENT: PERRLA
Respiratory: Clear to Auscultation; Negative Wheezes
Cardiac: Regular Rhythm and S1/S2
GI: Soft and Nontender
Musculoskeletal: No Edema
Skin: Warm and Dry; Negative Rash
Neuro: AO x 3
Psych: Calm
Data Reviewed
-
Diagnostic Radiology: Report Reviewed by me
Labs: Labs Reviewed by me
[2024-07-09 08:07] VITALS: BP 123/95
[2024-07-09 08:09] LABS: Glucose - Point of Care 204 mg/dl (70-99)
--- NOTE | 2024-07-09 08:36 | W.PN.NEPH.PH ---
Today's Communication / Plan
-
discharge
Needs BMP faxed to Dr. Lenz late next week to reassess K
Discharge patient on sodium bicarb 1950 mg p.o. twice daily
Assessment/Plan
-
Assessment
Diabetes mellitus type 2
Atrial fibrillation
Hypertension
Hyperkalemia
Metabolic acidosis
Hypercalcemia
Urostomy
Nausea
VT
Plan
K stable for discharge
needs bmp sent to Dr. Lenz late next week to reassess K
Holding NATALIYA inhibitor due to hypotension and hyperkalemia
Continue oral bicarbonate at discharge
no lokelma needed for now
VT management per cardiology
-
-
Date of Service: July 09, 2024
CC / HPI / ROS
-
Chief Complaint:
hyperkalemia
History of Present Illness:
K normal
s/p cardioversion 07/07/2024
INR high 6.69 on coumadin
Hemodynamically saw
Acidosis improved
Review of Systems:
no CP/SOB
Labs
-
Labs:
WBC 6.3 10^3/uL (4.8-10.8) 07/08/24 03:28
RBC 4.10 10^6/uL (4.70-6.10) L 07/08/24 03:28
Hgb 13.7 g/dL (13.0-18.0) 07/08/24 03:28
Hct 38.3 % (39.0-52.0) L 07/08/24 03:28
Plt Count 119 10^3/uL (130-400) L 07/08/24 03:28
Sodium 138 mmol/L (135-145) 07/09/24 04:11
Potassium 3.7 mmol/L (3.5-5.1) 07/09/24 04:11
Chloride 97 mmol/L (98-107) L 07/09/24 04:11
Carbon Dioxide 33 mmol/L (22-30) H 07/09/24 04:11
BUN 67 mg/dl (9-20) H 07/09/24 04:11
Creatinine 0.9 mg/dL (0.7-1.3) 07/09/24 04:11
eGFR > 60.00 07/09/24 04:11
Glucose 197 mg/dl (70-99) H 07/09/24 04:11
Calcium 9.6 mg/dl (8.4-10.2) 07/09/24 04:11
Albumin 4.3 g/dl (3.5-5.0) 07/06/24 04:20
Physical Exam
-
Vital Signs:
Vital Signs
Temp Pulse Resp BP Pulse Ox
97.4 F 74 20 146/82 96
07/09/24 08:22 07/08/24 23:01 07/09/24 08:22 07/08/24 23:01 07/09/24 08:22
Cardiovascular:: Regular rate and rhythm
Respiratory:: Bilateral: Coarse
Lung Excursion:: Normal
Abdomen:: Nontender and Soft
Bowel Sounds:: Normal
Extremity Edema:: None: Bilateral:
--- NOTE | 2024-07-09 08:52 | W.PN.CARDCBS ---
Addendum entered and electronically signed by Frank Pascal MD 07/09/24 09:30:
I saw and examined the patient.
The [employer] SPECIALIST or PA's note was reviewed and I agree with the note.
Comment: General: Well developed, well nourished in NAD.
Neck: Supple, no JVD, HJR, carotids +2 B/L, no bruits bilaterally.
Heart: Non displaced PMI, RRR, no murmurs, No S3, S4, no rubs.
Lungs: Scattered rhonchi
Extremities: No clubbing, cyanosis or edema bilaterally.
Neuro: Grossly nonfocal, awake, alert and oriented x3.
No further VT or A-fib. Episode of pacing may have been preference pacing to prevent A-fib. Will change amiodarone to 200 mg p.o. twice daily. INR remains very high likely related to amiodarone loading. Will check INR on Thursday. Will stop
lisinopril with hypotension. Outpatient follow-up arranged. Patient might consider hospice at some point as is currently on hospice. Discussed with primary service
Original Note:
Today's Communication / Plan
-
plan for amiodarone 200mg BID with mexiletine 150mg Q8H
toprol 25mg BID
holding coumadin. repeat INR Thursday
stop lisinopril
OP cardiac follow up arranged
for SNF
Impression / Plan
-
PCP: Dr. Swenson
Volunteer Coordinator: Dr. Yeager
Impression:
Sustained hemodynamically stable VT
Paroxysmal atrial tachycardia/fib with RVR
Hyperkalemia
Nausea and vomiting
Elevated Troponin
Chronic HFrEF
Paroxysmal atrial fibrillation
s/p PVI 06/2010, 11/2010, 09/2013
s/p flutter ablation 05/2012
s/p convergent MAZE 09/2014
s/p CV 03/11/24, recurred and amiodarone increased to 200 mg BID 03/26/24
s/p CV 04/07/24
Chronic amiodarone therapy
Chronic warfarin anticoagulation with supratherapeutic INR - INRs managed by PCP
Ventricular tachycardia
s/p VT ablation 12/2014
s/p sustained VT treated with ATP 04/09/24
s/p [employer] DC ICD
HTN
DM2
Echo 07/18/2020: EF 30 to 35%, global hypokinesis as well as inferior akinesis, stage III diastolic dysfunction, moderate MR, mild AR, mild TR, estimated PAP 40 mmHg
Echo 10/30/2023: EF 34% by volume and 20-25% visually, global hypokinesis, normal RV function, mod MR, mod TR with PAP 40-45 mmHg
Plan:
-[facility] early AM, device interrogation with remote reader attempted by ER staff, but unsuccessful due to equipment malfunction (device could not obtain a signal to transmit). Patient had several ECGs in the ER in
the AM including one with what looks like AT and another with WCT concerning for possible VT. HRs in the 120s. [employer] rep came to ER to interrogate device and reported no VT, arrhythmia appeared to be Afib. Usual doses of Toprol XL 25 mg BID and
amiodarone 200 mg AM given, but tachycardia persisted. Became hypotensive with Cardizem gtt. Asymptomatic throughout, no chest pain, palpitations or SOB. BP improved, but HR continued in the 120s. Started amiodarone bolus and then gtt 07/06/24
evening, also added mexiletine 150 mg q 8 hours. Device interrogation repeated and concern for possible dual tachycardia.
-fortunately appears mostly apaced on review of tele overnight, occasional AV pacing. ICD in place
-continue po amiodarone 200mg BID upon DC for 30 days then consider decreasing to 200mg daily pending VT burden. continue mexiletine 150mg Q8H
-continue toprol 25mg BID
-replete K. mag stable
-INR remains elevated however downtrending, 5.22 on 07/09. holding warfarin with plan for repeat INR Thursday. INRs managed by PCP as OP
-EF 34% by echo 10/30/23. Patient was using a Lasix PRN regimen prior to admission and reports he has not taken Lasix in weeks due to weight loss. He has not been eating much due to his entering hospice.
-GDMT includes Toprol XL 25 mg BID, farxiga. stop lisinopril due to hypotension, hyperkalemia
-Patient with NICM. 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 LAD, CX and RCA with Luminal irregularities
-ongoing family discussions regarding goals of care. he is DNR
-BMP/mag in 1 week upon DC
-plan for DC to SNF today
-OP cardiac follow up arranged
-d/w nursing, hospitalist
HPI: Patient came to [facility] early this morning with stumbling and is being admitted with abnormal telemetry and hyperkalemia. Patient with a h/o slow VT and had ATP for sustained VT on 07/10/24. No other device alerts since then, but patient has a h/o
VT rates below detection zone. Patient also with h/o paroxysmal Afib. He had an outpatient CV for Afib 03/11/24 and recurred with Afib within 3 weeks. His amiodarone dose was increased to 200 mg BID approx 03/26/24 and he had another CV 04/07/24. He was
seen in the office 06/13/24 and was in SR on device check so his amiodarone dose was decreased to 300 mg daily. Patient reports feeling jittery and weak leading to him stumbling starting on Thursday, but his daughters are sitting bedside and state he
has been acting that way for 2 weeks. Patient finally came to [facility] this AM because he is retching to vomit as well and patient was suspicious that his potassium level was high, he has a h/o hyperkalemia. He reports that because his weight has been
low that he has not been taking his usual doses of Lasix 40 mg daily. He does not take a potassium supplement. He takes lisinopril 2.5 mg daily chronically. He denies palpitations. No chest pain. His potassium was corrected in the ER and is now
normal.
Progress Note - Volunteer Coordinator
Subjective
Date of Service: July 09, 2024
Reports some mild stomach upset, however overall better today
Objective
Labs:
07/08/24 03:28
07/09/24 04:11
Labs
Hgb 13.7 g/dL (13.0-18.0) 07/08/24 03:28
Hct 38.3 % (39.0-52.0) L 07/08/24 03:28
Plt Count 119 10^3/uL (130-400) L 07/08/24 03:28
PT 48.3 Sec (11.4-14.6) H 07/09/24 04:11
INR 5.22 H* 07/09/24 04:11
Sodium 138 mmol/L (135-145) 07/09/24 04:11
Potassium 3.7 mmol/L (3.5-5.1) 07/09/24 04:11
BUN 67 mg/dl (9-20) H 07/09/24 04:11
Creatinine 0.9 mg/dL (0.7-1.3) 07/09/24 04:11
Glucose 197 mg/dl (70-99) H 07/09/24 04:11
Troponins
07/07/24
08:43
Troponin I 0.050 H*
Vital Signs and I&O:
Vital Signs
Temp Pulse Resp BP Pulse Ox
97.4 F 74 20 146/82 96
07/09/24 08:22 07/08/24 23:01 07/09/24 08:22 07/08/24 23:01 07/09/24 08:22
Vital Signs
Temp Pulse Resp BP Pulse Ox
97.4 F 74 20 146/82 96
07/09/24 08:22 07/08/24 23:01 07/09/24 08:22 07/08/24 23:01 07/09/24 08:22
Intake & Output
07/07/24 07/08/24 07/09/24 07/10/24
07:59 07:59 07:59 07:59
Intake Total 1495 / 1495 3072.9 / 3072.9 593.65 / 593.65
Output Total 415 / 415 2625 / 2625 2650 / 2650
Balance 1080 / 1079 447.9 / 447.9 -2055.35 / -
Physical Exam
Physical Exam
GEN: No distress, awake, alert, oriented x3. frail
HEENT: supple, anicteric, mmm, eomi
LUNGS: CTA B/L, no wheezes
CV: Reg, S1/S2, 1/6 murmur
ABD: soft, BS+, NT/ND
EXT: No cyanosis, clubbing, edema
NEURO: Gross non-focal
SKIN: Warm, pink, dry. No rash
[2024-07-09] MEDS: GLUCOTROL 2.5 MG PO (08:53)
[2024-07-09] MEDS: PROTONIX 20 MG PO (08:53)
[2024-07-09] MEDS: COLACE PO (08:53)
[2024-07-09] MEDS: PACERONE 400 MG PO (08:54)
[2024-07-09] MEDS: MEXITIL 150 MG PO (08:55)
[2024-07-09] MEDS: SODIUM BICARBONATE 1950 MG PO (08:55)
[2024-07-09] MEDS: FARXIGA 10 MG PO (08:56)
[2024-07-09] MEDS: NOVOLOG FLEXPEN-LOW RESISTANCE 2 UNITS SC (08:56)
[2024-07-09] MEDS: FEOSOL 325 MG PO (08:56)
[2024-07-09] MEDS: ZOLOFT 25 MG PO (08:56)
[2024-07-09] MEDS: COLACE 100 MG PO (08:59)
--- NOTE | 2024-07-09 09:16 | W.DS.TRANS ---
DC Summary - Field Gauger
-
Discharge Instructions:
Sleep Apnea Risk Intermediate
Discharge Diagnosis/Procedures ventricular tachycardia, nausea/vomiting,
metabolic acidosis, elevated INR
Diet Diabetic, Carb Controlled
Activity As tolerated
Driving Restrictions No driving
Bathing Restrictions None
Blood Work INR on Thursday07/11/24; BMP/magnesium and INR on
Thursday07/13/24
Other Services PT,OT
Instructions:
Stand-Alone Forms:
Changes to Home Medications: Yes
Discharge Medications:
DC Medications w/original date entered in [employer]
metoprolol succinate 25 mg tablet,extended release 24 hr 25 mg PO BID Blood pressure 12/18/14
atorvastatin 40 mg tablet 40 mg PO QPM High cholesterol 11/10/16
warfarin 5 mg tablet (Jantoven) 5 mg PO Q48H Blood clot prevention/tx 01/19/21
ferrous sulfate 325 mg (65 mg iron) tablet (iron) 325 mg PO DAILY Supplement 09/10/21
sodium bicarbonate 650 mg tablet 1,950 mg PO BID Supplement 02/10/22
pantoprazole 20 mg tablet,delayed release (Protonix) 20 mg PO DAILY Gastrointestinal Issue 10/30/23
sertraline 50 mg tablet 25 mg PO DAILY Depression 10/30/23
dapagliflozin propanediol 10 mg tablet (Farxiga) 10 mg PO DAILY Heart Failure #30 tabs 11/01/23
acetaminophen 325 mg tablet 650 mg (2 x 325 mg) PO Q4HPRN PRN mild pain/FORBES/temp> 100.4F #30 tabs 07/09/24
amiodarone 200 mg tablet 200 mg PO BID #90 tabs 07/09/24
bisacodyl 10 mg rectal suppository 10 mg IA [id number] PRN constipation #5 ea 07/09/24
docusate sodium 100 mg capsule 100 mg PO BID #60 caps 07/09/24
glipizide 5 mg tablet 2.5 mg (1/2 x 5 mg) PO DAILY #30 tabs 07/09/24
mexiletine 150 mg capsule 150 mg PO Q8 #90 caps 07/09/24
polyethylene glycol 3350 17 gram oral powder packet (HealthyLax) 17 g PO DAILY #30 ea 07/09/24
Home Medication Changes
STOP: LISINOPRIL, METFORMIN
NEW START: AMIODARONE, MEXILETINE
NEW START: GLIPIZIDE 2.5MG DAILY
MIRALAX DAILY
HOLD COUMADIN
Pending Results: No
[2024-07-09] MEDS: KLOR-CON 20 MEQ PO (10:36)
[2024-07-09 11:17] VITALS: BP 144/65
--- NOTE | 2024-07-09 11:20 | PTCARENOTE ---
report called to [facility]. also spoke with pt and daughter to update on plan of care and discharge. pt ambulated to chair and tolerated well. pt has been apaced on the monitor, hr in the 80s, vss. pt offers no complaints at this time.
call gallardo within reach.
[2024-07-09] MEDS: NOVOLOG FLEXPEN-LOW RESISTANCE SC (14:14)
--- NOTE | 2024-07-09 14:16 | PTCARENOTE ---
d/c instructions read to pt and daughter both acknowledged understanding. iv and tele removed. pat left with belongings from room and instructions via wheelchair with staff member.
--- NOTE | 2024-07-09 14:35 | W.DCSUMMARY ---
Discharge Summary
Discharge Data
Date of Admission: 07/06/24
Date of Discharge: 07/09/24
-
Pending Results: No
Hospital Course
Discharging Physician : Dr. Viola Paniagua
Disposition : SNF
Primary care physician : Dr. Hillary Swenson
Principal Discharge diagnosis : Sustained hemodynamically stable VT, Paroxysmal atrial tachycardia/fib with RVR
Hospital Course :
Mr. Chan Mccoy is a 78 yo man with hx HFrEF, nonischemic cardiomyopathy with EF 34%, PAF on coumadin s/p multiple attempts at ablation, cardioversion 04/25, VT s/p ablation 2014 on amiodarone presents to the ER with weakness and poor PO intake,
and found to be in a rapid arrhythmia. On device interrogation it was seen that patient had dual tachycardia with underlying atrial tachycardia and ventricular tachycardia. Blood pressure stable. Labs significant for hyperkalemia and metabolic
acidosis.
He was admitted to medicine with Cardiology and Nephrology consulting. Hyperkalemia corrected and he was placed on a sodium bicarb gtt with resolution of metabolic acidosis. He was started on an IV Amiodarone gtt and Mexiletine 150mg PO TID.
Cardioversion 07/07 with return to tachyarrhythmia that converted to sinus with higher amio loading. Please see update note from Dr. Yeager on 07/07/24, patient understands poor prognosis going forward.
Patient is discharged with new scripts for amiodarone and Mexiletine. He is continued on OUTSOLE LEVELER metoprolol.
His nausea improved with return to NSR, remains with poor appetite.
Given poor PO intake, INR was elevated and is trending down. It is 5.22 on day of discharge, holding coumadin with plans for repeat INR on Thursday07/11/24.
Given hyperkalemia, he is told to stop Lisinopril. Given metabolic acidosis told to stop metformin.
Given metformin stopped and he is hyperglycemic, I started low dose Glipizide. He is continued on Farxiga.
Time spent on discharge was 40 minutes.
Important imaging findings :
Procedure findings :
Discharge Plan
-
Patient Disposition: Assisted/SNF
Discharge Diagnosis/Procedures: ventricular tachycardia, nausea/vomiting, metabolic acidosis, elevated INR
Diet: Diabetic, Carb Controlled
Activity: As tolerated
Driving Restrictions: No driving
Bathing Restrictions: None
Blood Work: INR on Thursday07/11/24; BMP/magnesium and INR on Thursday07/13/24
Other Services: PT and OT
Referrals:
[facility] [Outside] (FAX [phone])
Ella Sin PA-C [Specified Professional Personl] - 07/22/24 12:40 pm (You have a cardiology follow-up appointment at the [place] office with Dr. Yeager's physician equity sales assistant, Ella. Please call with questions)
Hillary Swenson MD [Family Provider] - in less than 1 week
Additional Discharge Medication Instructions: HOLD COUMADIN UNTIL NEXT INR DATE which will be on Thursday07/11/24 (Your INR was 5.22 today, 07/09)
Stop Metformin (because of the way your labs looked on admission - metabolic acidosis).
Start low dose Glipizide for diabetes. Your blood sugars will be monitored at [facility] and this dose can be adjusted.
Take Amiodarone 200mg twice a day x 30 days then daily
You are newly started on Mexiletine 3x/day
Stop lisinopril because your potassium was high on admission.
Prescriptions:
New
mexiletine 150 mg Capsule
150 mg PO Q8 Qty: 90 0RF
bisacodyl 10 mg Suppository
10 mg VT [id number] PRN (Reason: constipation) Qty: 5 0RF
docusate sodium 100 mg Capsule
100 mg PO BID Qty: 60 0RF
glipizide 5 mg Tablet
2.5 mg PO DAILY Qty: 30 0RF
acetaminophen 325 mg Tablet
650 mg PO Q4HPRN PRN (Reason: mild pain/FORBES/temp> 100.4F) Qty: 30 0RF
polyethylene glycol 3350 [HealthyLax] 17 gram Powder In Packet
17 g PO DAILY Qty: 30 0RF
amiodarone 200 mg Tablet
200 mg PO BID Qty: 90 0RF
Rx Instructions:
Take 200mg twice a day x 30 days then 200mg daily
Continued
metoprolol succinate 25 MG tablet extended release 24 hr
25 mg PO BID
atorvastatin 40 MG tablet
40 mg PO QPM
ferrous sulfate [iron] 325 MG tablet
325 mg PO DAILY
sodium bicarbonate 650 MG tablet
1,950 mg PO BID
pantoprazole [Protonix] 20 mg Tablet,Delayed Release (Dr/Ec)
20 mg PO DAILY
sertraline 50 mg Tablet
25 mg PO DAILY
dapagliflozin propanediol [Farxiga] 10 mg tablet
10 mg PO DAILY Qty: 30 0RF
Held
warfarin [Jantoven] 5 MG tablet
5 mg PO Q48H
Hold Instructions: Resume on 07/12/24. resume when told to do so by outpatient providers, based on INR
Discontinued
amiodarone [Pacerone] 200 MG tablet
300 mg PO DAILY
lisinopril 2.5 MG tablet
2.5 mg PO DAILY
metformin 500 mg Tablet Extended Release 24 Hr
500 mg PO QPM@1700
Discharge Orders:
Discharge Patient (As Directed); Ordered 07/09/24
Ordered By: Viola Paniagua
Care Plan Goals
Care Plan Goals:
Problem: Readiness for enhanced knowledge related to diagnosis and treatment plan
Goal: Understand your diagnosis and treatment plan needs, including medications if applicable.
Instructions: Know your diagnosis, underlying causes and treatment plan options, including medications if applicable. Consult with your health care team to learn about your diagnosis and treatment plan, including medications if applicable.
Discharge Date and Time
Discharge Date/Time: 07/09/24 13:00
Print Language: [email or web address]
== END 2024-07-09 13:00 | DRG 640 ==
LOC: IVU 07:35
PROVIDERS: Internal Medicine Cardiovascular Disease; Physician Assistant Medical; Specialist; ADMITTING PHYSICIAN Internal Medicine; ATTENDING PHYSICIAN Student in an Organized Health Care Education/Training Program; EMERGENCY PHYSICIAN Student in an Organized Health Care Education/Training Program; FAMILY PHYSICIAN Family Medicine; OTHER PHYSICIAN Internal Medicine Cardiovascular Disease; OTHER PHYSICIAN Specialist
PROC: 5A2204Z Restoration of Cardiac Rhythm, Single (ICD-10-PCS; 2024-07-07)
DX: E87.5 Hyperkalemia (principal); E43 Unspecified severe protein-calorie malnutrition; I13.0 Hypertensive heart and chronic kidney disease with heart failure and stage 1 through stage 4 chronic kidney disease, or unspecified chronic kidney disease; I47.20 Ventricular tachycardia, unspecified; I48.92 Unspecified atrial flutter; I50.22 Chronic systolic (congestive) heart failure; I5A Non-ischemic myocardial injury (non-traumatic); Z68.1 Body mass index [BMI] 19.9 or less, adult; R64 Cachexia; E87.22 Chronic metabolic acidosis; E87.29 Other acidosis; E87.8 Other disorders of electrolyte and fluid balance, not elsewhere classified; N25.89 Other disorders resulting from impaired renal tubular function; E11.65 Type 2 diabetes mellitus with hyperglycemia; E11.22 Type 2 diabetes mellitus with diabetic chronic kidney disease; N18.9 Chronic kidney disease, unspecified; I48.0 Paroxysmal atrial fibrillation; Z79.01 Long term (current) use of anticoagulants
CPT/HCPCS: 74022; 80048; 80053; 82962; 83036; 83735; 84132; 84484; 85025; 85027; 85610; 92960; 93005; 94640; 96361; 96374; 96375; 96376; 97116; 97163; 97167; 99291